=== PATIENT | female | born 1950 | race Caucasian/White ===

== ENCOUNTER 2019-03-09 13:22 | Outpatient (CLI) | payer MEDICARE, OTHER, SELFPAY ==
--- NOTE | 2019-03-09 13:36 | XRR_ITS ---
PROCEDURE INFORMATION: Exam: XR Bilateral Hips Exam date and time: 03/09/2019 1:55 PM Age: 68 years old Clinical indication: Hip pain; Bilateral; Additional info: Bilateral hip pain TECHNIQUE: Imaging protocol: XR bilateral hips Views: Bilateral hip AP neutral and frog-leg views, 4 views. COMPARISON: No relevant prior studies available. FINDINGS: Bones/joints: Severe right hip joint narrowing with cystic changes and subchondral sclerosis, mild lateral para-articular ossification. Slight lateral femoral head subluxation. Mild left lateral acetabular articular marginal hypertrophy. Soft tissues: Unremarkable. Vasculature: Calcified phleboliths are present in the lower pelvis bilaterally. 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
== END 2019-03-09 13:23 | disposition home or self-care (01) ==
LOC: RAD 13:31
PROVIDERS: Family Provider Nurse Practitioner Family; PCP Nurse Practitioner Family; Visit Provider Internal Medicine
DX: M16.0 Bilateral primary osteoarthritis of hip (principal); M25.551 Pain in right hip; M25.552 Pain in left hip
CPT/HCPCS: 73522

== ENCOUNTER 2019-12-10 06:00 | Outpatient (RCR) | payer MEDICARE, OTHER, SELFPAY | END 2019-12-12 23:59 | disposition home or self-care (01) | LOC: SPT 06:00 | PROVIDERS: PCP Nurse Practitioner Family; Referring Provider Orthopaedic Surgery; Visit Provider Orthopaedic Surgery | DX: Z47.1 Aftercare following joint replacement surgery (principal); Z96.652 Presence of left artificial knee joint | CPT/HCPCS: 97161 ==

== ENCOUNTER 2019-12-13 06:00 | Outpatient (RCR) | payer MEDICARE, OTHER, SELFPAY | END 2020-01-11 23:59 | disposition home or self-care (01) | LOC: SPT 06:00 | PROVIDERS: PCP Nurse Practitioner Family; Referring Provider Orthopaedic Surgery; Visit Provider Orthopaedic Surgery | DX: Z47.1 Aftercare following joint replacement surgery (principal); Z96.652 Presence of left artificial knee joint | CPT/HCPCS: 97110 ==

== ENCOUNTER 2020-01-12 06:00 | Outpatient (RCR) | payer MEDICARE, OTHER, SELFPAY | END 2020-02-11 23:59 | disposition home or self-care (01) | LOC: SPT 06:00 | PROVIDERS: PCP Nurse Practitioner Family; Referring Provider Orthopaedic Surgery; Visit Provider Orthopaedic Surgery | DX: Z47.1 Aftercare following joint replacement surgery (principal); Z96.652 Presence of left artificial knee joint | CPT/HCPCS: 97110 ==

== ENCOUNTER 2020-02-12 06:00 | Outpatient (RCR) | payer MEDICARE, OTHER, SELFPAY | END 2020-03-13 23:59 | disposition home or self-care (01) | LOC: SPT 06:00 | PROVIDERS: PCP Nurse Practitioner Family; Referring Provider Orthopaedic Surgery; Visit Provider Orthopaedic Surgery | DX: Z47.1 Aftercare following joint replacement surgery (principal); Z96.652 Presence of left artificial knee joint | CPT/HCPCS: 97110 ==

== ENCOUNTER → 2023-01-25 09:49 | Outpatient (BNVA) | payer MEDICARE, SELFPAY | PROVIDERS: PCP Nurse Practitioner Family; Visit Provider Internal Medicine | DX: E07.9 Disorder of thyroid, unspecified (principal); E03.9 Hypothyroidism, unspecified; R63.5 Abnormal weight gain; R06.02 Shortness of breath; Z79.890 Hormone replacement therapy; Z68.35 Body mass index [BMI] 35.0-35.9, adult | CPT/HCPCS: 99204 ==

== ENCOUNTER → 2023-03-06 15:48 | Outpatient (BNVA) | payer MEDICARE, SELFPAY | PROVIDERS: PCP Nurse Practitioner Family; Visit Provider Nurse Practitioner Family | DX: R06.00 Dyspnea, unspecified (principal) | CPT/HCPCS: 71046 ==

== ENCOUNTER → 2023-09-23 13:01 | Outpatient (BNVA) | payer MEDICARE, SELFPAY | PROVIDERS: PCP Nurse Practitioner Family; Visit Provider Thoracic Surgery (Cardiothoracic Vascular Surgery) | DX: I96 Gangrene, not elsewhere classified (principal); I87.2 Venous insufficiency (chronic) (peripheral); L97.822 Non-pressure chronic ulcer of other part of left lower leg with fat layer exposed | CPT/HCPCS: 11042; 11045; 97597; 99213 ==

== ENCOUNTER → 2023-10-02 13:32 | Outpatient (BNVA) | payer MEDICARE, SELFPAY | PROVIDERS: PCP Nurse Practitioner Family; Visit Provider Thoracic Surgery (Cardiothoracic Vascular Surgery) | DX: I96 Gangrene, not elsewhere classified (principal); I87.2 Venous insufficiency (chronic) (peripheral); L97.822 Non-pressure chronic ulcer of other part of left lower leg with fat layer exposed | CPT/HCPCS: 97597; 97598 ==

== ENCOUNTER → 2023-10-09 10:30 | Outpatient (BNVA) | payer MEDICARE, SELFPAY | PROVIDERS: PCP Nurse Practitioner Family; Visit Provider Thoracic Surgery (Cardiothoracic Vascular Surgery) | DX: I96 Gangrene, not elsewhere classified (principal); I87.2 Venous insufficiency (chronic) (peripheral); L97.822 Non-pressure chronic ulcer of other part of left lower leg with fat layer exposed | CPT/HCPCS: 97597; 97598; A6252 ==

== ENCOUNTER → 2023-10-11 11:16 | Outpatient (BNVA) | payer MEDICARE, SELFPAY | PROVIDERS: PCP Nurse Practitioner Family; Visit Provider Thoracic Surgery (Cardiothoracic Vascular Surgery) | DX: I96 Gangrene, not elsewhere classified (principal); I87.2 Venous insufficiency (chronic) (peripheral); L97.822 Non-pressure chronic ulcer of other part of left lower leg with fat layer exposed | CPT/HCPCS: 99212; A6252 ==

== ENCOUNTER → 2023-10-17 13:59 | Outpatient (BNVA) | payer MEDICARE, SELFPAY | PROVIDERS: PCP Nurse Practitioner Family; Visit Provider Thoracic Surgery (Cardiothoracic Vascular Surgery) | DX: I96 Gangrene, not elsewhere classified (principal); I87.2 Venous insufficiency (chronic) (peripheral); L97.821 Non-pressure chronic ulcer of other part of left lower leg limited to breakdown of skin | CPT/HCPCS: 97597; 97598 ==

== ENCOUNTER → 2023-10-24 10:58 | Outpatient (BNVA) | payer MEDICARE, SELFPAY | PROVIDERS: PCP Nurse Practitioner Family; Visit Provider Thoracic Surgery (Cardiothoracic Vascular Surgery) | DX: I96 Gangrene, not elsewhere classified; I87.2 Venous insufficiency (chronic) (peripheral); L97.822 Non-pressure chronic ulcer of other part of left lower leg with fat layer exposed | CPT/HCPCS: 87070; 87077; 87176; 87186; 87205; 97597; 97598 ==

== ENCOUNTER → 2023-10-31 10:35 | Outpatient (BNVA) | payer MEDICARE, SELFPAY | PROVIDERS: PCP Nurse Practitioner Family; Visit Provider Thoracic Surgery (Cardiothoracic Vascular Surgery) | DX: I96 Gangrene, not elsewhere classified (principal); I87.2 Venous insufficiency (chronic) (peripheral); L97.821 Non-pressure chronic ulcer of other part of left lower leg limited to breakdown of skin | CPT/HCPCS: 97597; 97598 ==

== ENCOUNTER → 2023-11-06 13:00 | Outpatient (BNVA) | payer MEDICARE, SELFPAY | PROVIDERS: PCP Nurse Practitioner Family; Visit Provider Thoracic Surgery (Cardiothoracic Vascular Surgery) | DX: I96 Gangrene, not elsewhere classified (principal); I87.2 Venous insufficiency (chronic) (peripheral); L97.821 Non-pressure chronic ulcer of other part of left lower leg limited to breakdown of skin | CPT/HCPCS: 97597; 97598 ==

== ENCOUNTER 2023-11-07 09:09 | Inpatient (IN) | payer MEDICARE, SELFPAY ==
--- OUTSIDE RECORDS SUMMARY | 2023-11-07 09:15 | XMS_ITS ---
Author Name Unknown Organization [facility] Address [address] [place] [address] Care Team Providers Care Founder & Ceo Name Role Phone Eddy [facility] Primary Care Provider [phone] KAM, [facility] Unavailable Unavailable Allergies Allergen (clinical drug ingredient) Drug/Non Drug Allergy documented on EMR Reaction Allergy Type Onset Date Status Flexeril blurry vision Drug Allergy Act lexi REASON FOR VISIT September Medications Medication SIG (Take, Route, Frequency, Duration) Notes Start Date End Date Status Vitamin C 500 MG 1 tablet Orally Once a day Active Albuterol Sulfate HFA 108 (90 Base) MCG/ACT 2 puffs Inhalation four times a day prn for 30 days 02/08/2023 Not-Taking Calcium Active Vitamin B6 Active Vitamin B12 Active amLODIPine Besylate 5 MG 1 tablet Orally Once a day in evening for 30 days Active Amiodarone HCl 200 MG 1 tablet Orally On ce a day for 30 day(s) 04/23/2023 Active Potassium 99 MG 1 tablet Orally Once a day Active Magnesium 200 MG 1 tablet with a meal Orally Once a day Active Iodine (Kelp) 0.15 MG 1 tablet Orally ev catherine other day Active Levothyroxine Sodium 175 MCG 1 tablet in the morning on an empty stomach Orally Once a day for 30 days Active Furosemide 40 MG 1 tablet daily x 5 days, then as needed for 2-3 pound weight gain in 24 hours Orally Once a day for 30 days 06/19/2023 Active Eliquis 5 MG 1 tablet orally twic e a day for 30 days 03/08/2023 Active Olmesartan Medoxomil 40 MG 1/2 tablet Orally Twice a day for 30 days Active Omeprazole 20 mg TAKE ONE CAPSULE BY MOUTH EVERY DAY for 90 Active Gabapentin 100 MG 1 capsule Orally 3 times a day for neuropathic pain for 30 days 09/13/2023 Active Acyclovir 800 MG 1 tablet Orally 5x a day x 7 days for 10 days 09/13/2023 Active traMADol HCl 50 MG 1 tab Orally q 4 jossue rs prn severe pain for 30 days 09/13/2023 11/12/2023 Active Doxycycline Hyclate 100 MG 1 capsule Orally Twice a day for 21 day(s) 09/26/2023 10/17/2023 Active Ibuprofen 800 mg TAKE ONE TABLET BY MOUTH THREE TIMES DAILY AFTER MEALS NEEDED FOR inflammatory pain for 90 Active Social History Tobacco Use: Social History Observation Description Date Details (start date - stop date) Never Smoker NA - NA xTobacco Use/Smoking Question Answer Notes Are you a nonsmoker Encounters Encounter Location Date Provider Diagnosis [facility] [address] [place] [address] 10/04/2023 Rosa Kam Primary hypertension I10 and Leg pain, left M79.605 Assessments Encounter Date Diagnosis (ICD Code) Assessment Notes Treat ment Notes Treatment Clinical Notes 10/04/2023 Primary hypertension (ICD-10 - I10) 10/04/2023 Leg pain, left (ICD-10 - M79.605) Plan Of Treatment Next Appt Details Provider Name:Ferdinand Meza Berto , 12/10/2023 09:30:00 AM, [address], [place], [address], Progress Notes * ERIKA MORGAN EDOB:[birth year] (72 yo F)Acc No.[id number]:10/04/2023 Patient:?ERIKA MORGAN :1950???Age:72 Y???Sex:Female Address:[address] [place] [id number] Subjective: * Chief Complaints: * ???September * Medical History:? * Surgical History:? * Hospitalization/Major Diagno stic Procedure:? * Social History:?Tobacco Use:?xTobacco Use/Smoking?Are you a?nonsmoker * Medications:?TakingIbuprofen 800 mg Tablet TAKE ONE TABLET BY MOUTH THREE TIMES DAILY AFTER MEALS NEEDED FOR inflammatory pain Doxycycline Hyclate 100 MG Capsule 1 capsule Orally Twice a day , stop date 10/17/2023traMADol HCl 50 MG Tablet 1 tab Orally q 4 hours prn severe pain , stop date 11/12/2023cyclovir 800 MG Tablet 1 tablet Orally 5x a day x 7 days Gabapentin 100 MG Capsule 1 capsule Orally 3 times a day for neuropathic pain Levothyroxine Sodium 175 MCG Capsule 1 tablet in the morning on an empty stomach Orally Once a day Omeprazole 20 mg Capsule Delayed Release TAKE ONE CAPSULE BY MOUTH EVERY DAY Olmesartan Medoxomil 40 MG Tablet 1/2 tablet Orally Twice a day Eliquis 5 MG Tablet 1 tablet orally twice a day Furosemide 40 MG Tablet 1 tablet daily x 5 days, then as needed for 2-3 pound weight gain in 24 hours Orally Once a day Iodine (Kelp) 0.15 MG Tablet 1 tablet Orally every other day Magnesium 200 MG Tablet 1 tablet with a meal Orally Once a day Potassium 99 MG Tablet 1 tablet Orally Once a day Amiodarone HCl 200 MG Tablet 1 tablet Orally Once a day amLODIPine Besylate 5 MG Tablet 1 tablet Orally Once a day in evening Vitamin C 500 MG Tablet Chewable 1 tablet Orally Once a day Vitamin B12 Vitamin B6 Calcium Taking Ibuprofen 800 mg Tablet TAKE ONE TABLET BY MOUTH THREE TIMES DAILY AFTER MEALS NEEDED FOR inflammatory pain Taking Doxycycline Hyclate 100 MG Capsule 1 capsule Orally Twice a day , stop date 10/17/2023Taking traMADol HCl 50 MG Tablet 1 tab Orally q 4 hours prn severe pain , stop date 11/12/2023Taking Acyclovir 800 MG Tablet 1 tablet Orally 5x a day x 7 days Taking Gabapentin 100 MG Capsule 1 capsule Orally 3 times a day for neuropathic pain Taking Levothyroxine Sodium 175 MCG Capsule 1 tablet in the morning on an empty stomach Orally Once a day Taking Omeprazole 20 mg Capsule Delayed Release TAKE ONE CAPSULE BY MOUTH EVERY DAY Taking Olmesartan Medoxomil 40 MG Tablet 1/2 tablet Orally Twice a day Taking Eliquis 5 MG Tablet 1 tablet orally twice a day Taking Furosemide 40 MG Tablet 1 tablet daily x 5 days, then as needed for 2-3 pound weight gain in 24 hours Orally Once a day Taking Iodine (Kelp) 0.15 MG Tablet 1 tablet Orally every other day Taking Magnesium 200 MG Tablet 1 tablet with a meal Orally Once a day Taking Potassium 99 MG Tablet 1 tablet Orally Once a day Taking Amiodarone HCl 200 MG Tablet 1 tablet Orally Once a day Taking amLODIPine Besylate 5 MG Tablet 1 tablet Orally Once a day in evening Taking Vitamin C 500 MG Tablet Chewable 1 tablet Orally Once a day Taking Vitamin B12 Taking Vitamin B6 Taking Calcium Not-TakingAlbuterol Sulfate HFA 108 (90 Base) MCG/ACT Aerosol Solution 2 puffs Inhalation four times a day prn Medication List reviewed and reconciled with the patientNot-Taking Albuterol Sulfate HFA 108 (90 Base) MCG/ACT Aerosol Solution 2 puffs Inhalation four times a day prn Medication List reviewed and reconciled with the patient * Allergies:?Flexeril: blurry vision - Side Effects Objective: * Vitals:? * Physical Examination:? Assessment: * Assessment: 1.?Primary hypertension - I1 0 (Primary)???2.?Leg pain, left - M79.605??? Plan: * Treatment: * Procedure Codes:? * true * Date:? Generated for Carl smallwood/Robby/eTransmitting on:?11/07/2023 09:15 AM CDT
--- OUTSIDE RECORDS SUMMARY | 2023-11-07 09:15 | XMS_ITS ---
Author Name Unknown Organization [facility] Address [address] [place] [address] Care Team Providers Care Poultry Grader Name Role Phone Eddy [facility] Primary Care Provider KAM, [facility] Unavailable Unavailable Allergies Allergen (clinical drug ingredient) Drug/Non Drug Allergy documented on EMR Reaction Allergy Type Onset Date Status Flexeril blurry vision Drug Allergy Act lexi REASON FOR VISIT October Medications Medication SIG (Take, Route, Frequency, Duration) Notes Start Date End Date Status Albuterol Sulfate HFA 108 (90 Base) MCG/ACT 2 puffs Inhalation four times a day prn for 30 days 02/08/2023 Not-Taking Calcium Active Vitamin B6 Active Vitamin B12 Active Vitamin C 500 MG 1 tablet Orally Once a day Active Iodine (Kelp) 0.15 MG 1 tablet Orally ev catherine other day Active amLODIPine Besylate 5 MG 1 tablet Orally Once a day in evening for 30 days Active Amiodarone HCl 200 MG 1 tablet Orally On ce a day for 30 day(s) 04/23/2023 Active Potassium 99 MG 1 tablet Orally Once a day Active Magnesium 200 MG 1 tablet with a meal Orally Once a day Active Furosemide 40 MG 1 tablet daily [...] neuropathic pain for 30 days 09/13/2023 Active traMADol HCl 50 MG 1 tab Orally q 4 jossue rs prn severe pain for 30 days 09/13/2023 11/12/2023 Active Ibuprofen 800 mg TAKE ONE TABLET BY MOUTH THREE TIMES DAILY AFTER MEALS NEEDED FOR inflammatory pain for 90 Active Levothyroxine Sodium 175 mcg TAKE ONE TABLET BY MOUTH EVERY MORNING ON an EMPTY stomach for 30 Active Acyclovir 800 MG 1 tablet Orally 5x a day x 7 days for 10 days 09/13/2023 Active Social History Tobacco Use: Social History Observation Description Date Details (start date - stop date) Never Smoker NA - NA xTobacco Use/Smoking Question Answer Notes Are you a nonsmoker Encounters Encounter Location Date Provider Diagnosis [facility] [address] [facility] [place] [address] 11/04/2023 Rosa Kam Primary hypertension I10 and Cellulitis L03.90 Assessments Encounter Date Diagnosis (ICD Code) Assessment Notes Treat ment Notes Treatment Clinical Notes 11/04/2023 Primary hypertension (ICD-10 - I10) 11/04/2023 Cellulitis (ICD-10 - L03.90) Plan Of Treatment Next Appt Details Provider Name:Jorge Alberto Camp , 12/10/2023 09:30:00 AM, [address], [place], [address], Progress Notes * ERIKA MORGAN EDOB:[birth year] (72 yo F)Acc No.[id number]:11/04/2023 Patient:?DAYSI MORGANENE Romel :1950???Age:72 Y???Sex:Female Address:[address] [place] [phone] Subjective: * Chief Complaints: * ???CCM October * Medical History:? * Surgical History:? * Hospitalization/Major Diagno stic Procedure:? * Social History:?Tobacco Use:?xTobacco Use/Smoking?Are you a?nonsmoker ???caffeine pos alcohol neg. * Medications:?TakingLevothyro xine Sodium 175 mcg Tablet TAKE ONE TABLET BY MOUTH EVERY MORNING ON an EMPTY stomach Ibuprofen 800 mg Tablet TAKE ONE TABLET BY MOUTH THREE TIMES DAILY AFTER MEALS NEEDED FOR inflammatory pain traMADol HCl 50 MG Tablet 1 tab Orally q 4 hours prn severe pain , stop date 11/12/2023cyclovir 800 MG Tablet 1 tablet Orally 5x a day x 7 days Gabapentin 100 MG Capsule 1 capsule Orally 3 times a day for neuropathic pain Omeprazole 20 mg Capsule Delayed Release TAKE [...] day Vitamin B12 Vitamin B6 Calcium Taking Levothyroxine Sodium 175 mcg Tablet TAKE ONE TABLET BY MOUTH EVERY MORNING ON an EMPTY stomach Taking Ibuprofen 800 mg Tablet TAKE ONE TABLET BY MOUTH THREE TIMES DAILY AFTER MEALS NEEDED FOR inflammatory pain Taking traMADol HCl 50 MG Tablet 1 tab Orally q 4 hours prn severe pain , stop date 11/12/2023Taking Acyclovir 800 MG Tablet 1 tablet Orally 5x a day x 7 days Taking Gabapentin 100 MG Capsule 1 capsule Orally 3 times a day for neuropathic pain Taking Omeprazole 20 mg Capsule Delayed Release [...] * Assessment: 1.?Primary hypertension - I1 0 (Primary)???2.?Cellulitis - L03.90??? Plan: * Treatment: * Procedure Codes:? * * Date:?
--- OUTSIDE RECORDS SUMMARY | 2023-11-07 09:15 | XMS_ITS ---
Author Name Unknown Organization [facility] Address [address] [place] [address] Care Team Providers Care Bridge Saw Operator Name Role Phone Germaine Kam Primary Care Provider GERMAINE KAM Unavailable Unavailable REASON FOR VISIT HTN, HLD Medications Medication SIG (Take, Route, Frequency, Duration) Notes Start Date End Date Status Calcium Active Vitamin B6 Active Vitamin B12 Active Levothyroxine Sodium 175 mcg TAKE ONE TABLET BY MOUTH EVERY MORNING ON an EMPTY stomach for 30 Active Albuterol Sulfate HFA 108 (90 Base) MCG/ACT 2 puffs Inhalation four times a day prn for 30 days 02/08/2023 Not-Taking Magnesium 200 MG 1 tablet with a meal Orally Once a day Active Vitamin C 500 MG 1 tablet Orally Once a day Active amLODIPine Besylate 5 MG 1 tablet Orally Once a day in evening for 30 days Active Amiodarone HCl 200 MG 1 tablet Orally On ce a day for 30 day(s) 04/23/2023 Active Potassium 99 MG 1 tablet Orally Once a day Active Olmesartan Medoxomil 40 MG 1/2 tablet Orally Twice a day for 30 days Active Omeprazole 20 mg TAKE ONE CAPSULE BY MOUTH EVERY DAY for 90 Active Iodine (Kelp) 0.15 MG 1 tablet Orally ev catherine other day Active Furosemide 40 MG 1 tablet daily x 5 days, then as needed for 2-3 pound weight gain in 24 hours Orally Once a day for 30 days 06/19/2023 Active Eliquis 5 MG 1 tablet orally twic e a day for 30 days 03/08/2023 Active Acyclovir 800 MG 1 tablet Orally 5x a day x 7 days for 10 days 09/13/2023 Active traMADol HCl 50 MG 1 tab Orally q 4 jossue rs prn severe pain for 30 days 09/13/2023 11/12/2023 Active Ibuprofen 800 mg TAKE ONE TABLET BY MOUTH THREE TIMES DAILY AFTER MEALS NEEDED FOR inflammatory pain for 90 Active Gabapentin 100 MG 1 capsule Orally 3 times a day for neuropathic pain for 30 days 09/13/2023 Active Encounters Encounter Location Date Provider Diagnosis [facility] [address] [place] [address] 11/04/2023 [facility] Plan Of Treatment Next Appt Details Provider Name:Ferdinand Meza Berto , 12/10/2023 09:30:00 AM, [address], [place], [address], Progress Notes * ERIKA MORGAN EDOB:[birth year] (72 yo F)Acc No.[id number]:11/04/2023 Care Plan Visit Patient:?ERIKA MORGAN Provider:?Germaine Kam BIOSOLIDS MANAGEMENT TECHNICIAN?Resource:Jonh Collins :1950???Age:72 Y???Sex:Female D ate:11/04/2023 Address:[address] [place] [id number] Subjective: * Chief Complaints: * ???1. HTN, HLD. * Medical History:? * Medications:?Taking Ibuprofe n 800 mg Tablet TAKE ONE TABLET BY MOUTH THREE TIMES DAILY AFTER MEALS NEEDED FOR inflammatory pain , Taking traMADol HCl 50 MG Tablet 1 tab Orally q 4 hours prn severe pain , stop date 11/12/2023, Taking Acyclovir 800 MG Tablet 1 tablet Orally 5x a day x 7 days , Taking Gabapentin 100 MG Capsule 1 capsule Orally 3 times a day for neuropathic pain , Taking Omeprazole 20 mg Capsule Delayed Release TAKE ONE CAPSULE BY MOUTH EVERY DAY , Taking Olmesartan Medoxomil 40 MG Tablet 1/2 tablet Orally Twice a day , Taking Eliquis 5 MG Tablet 1 tablet orally twice a day , Taking Furosemide 40 MG Tablet 1 tablet daily x 5 days, then as needed for 2-3 pound weight gain in 24 hours Orally Once a day , Taking Iodine (Kelp) 0.15 MG Tablet 1 tablet Orally every other day , Taking Magnesium 200 MG Tablet 1 tablet with a meal Orally Once a day , Taking Potassium 99 MG Tablet 1 tablet Orally Once a day , Taking Amiodarone HCl 200 MG Tablet 1 tablet Orally Once a day , Taking amLODIPine Besylate 5 MG Tablet 1 tablet Orally Once a day in evening , Taking Vitamin C 500 MG Tablet Chewable 1 tablet Orally Once a day , Taking Vitamin B12 , Taking Vitamin B6 , Taking Calcium , Taking Levothyroxine Sodium 175 mcg Tablet TAKE ONE TABLET BY MOUTH EVERY MORNING ON an EMPTY stomach , Not-Taking Albuterol Sulfate HFA 108 (90 Base) MCG/ACT Aerosol Solution 2 puffs Inhalation four times a day prn Objective: * Vitals:? Assessment: Plan: * Treatment: Care Plan: * Problems:? * Billing Information: * Visit Code:? * Procedure Codes:? Care Plan Details* Morbid ObesityGoalObjectiveI nterventionG1.Obesity- Achieve a healthy weight rangeGoal Outcome:In ProgressStart Date:11/09/2022O1.Obesity- Determine current motivation to lose weight and stage of changeI1.Free TextNotes(1) establish individual goal and plan for attaining that goalName: John Jalloh ? ? Time: 11/09/2022 02:37 PMHypertensionGoalObjectiveInterventionG1.Hypertension/Hyperlipidemia- Decrease blood pressureGoal Outcome:In ProgressStart Date:11/09/2022O1.Hypertension/Hyperlipidemia- Assess motivation and stage of changeI1.Hypertension - Patient kept a daily log of blood pressure. * Patient Focused Care Plan Family/Caregiver involved in patient's care?self Specialist involved in patie nt care?wound clinic Symptoms/conditions of great est concern to the patient?current cellulitis Psych-Social status?AAOx3 Environmental status?lives i n her home alone Functional status?indep with ADLs and IADLs Follow up plan?keep all medi lydia appts, talk with cm once per month, take medications as directed Patient provided with aj vaz/electronic copy of care plan:?Sent to portal electronically * Sign off status: Completed true * Provider:Dario Kam BIOSOLIDS MANAGEMENT TECHNICIAN Date:?11/04/19 24 Generated for Carl smallwood/Robby/Yuliana on:?11/07/2023 09:15 AM CDT
--- OUTSIDE RECORDS SUMMARY | 2023-11-07 09:16 | XMS_ITS | Patient Health Record ---
Author Name Unknown Organization [facility] Address [address] [place] [address] Care Team Providers Care Mobile Home Laborer Name Role Phone Rosa Kam Primary Care Provider [phone] ROSA KAM Unavailable Unavailable Barbaracarlos Samir Unavailable [phone] Pal Calderon Unavailable [phone] Aaron Whitaker Unavailable [phone] EmmanuelDiana Unavailable [phone] Allergies Allergen (clinical drug ingredient) Drug/Non Drug Allergy documented on EMR Reaction Allergy Type Onset Date Status Flexeril blurry vision Drug Allergy Act lexi Results Component Value Reference Range Notes RA Factor 59569, 10534 Reviewed date:02/08/2023 06:33:40 PM Interpretation: Performing Lab: Notes/Report: Diagnosis Description: Rheumatoid arthritis with rheumatoid factor 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 Uric Acid (B) 53239 Reviewed date:02/08/2023 07:00:40 PM Interpretation: Performing Lab: Notes/Report: Diagnosis Description: Idiopathic chronic gout, multiple sites, with tophus (tophi) Uric Acid 5.2 2.6-6.0 MG/DL Thyroxine (T4) 10830 Reviewed date:02/08/2023 06:34:42 PM Interpretation: Performing Lab: Notes/Report: Diagnosis Description: Hypothyroidism, unspecified ThyroxinT4 10.7 4.8-13.9 Thyroid Stimulating Hormone (TSH) 60245 Reviewed date:02/08/2023 06:38:43 PM Interpretation: Performing Lab: Notes/Report: Diagnosis Description: Hypothyroidism, unspecified TSH 5.366 .358-3.740 MlU/ML Echo Complete [id number] Reviewed date:03/12/2023 02:19:02 PM Interpretation: Performing Lab: Notes/Report: NM Lexiscan Cardiolite-03466 Reviewed date:03/19/2023 08:06:17 AM Interpretation: Performing Lab: Notes/Report: qhq=[id number]&org=iSite sbl=[id number] &org =iSite NM Lexiscan Cardiolite-[id number] Reviewed date:03/19/2023 04:05:24 PM Interpretation: Performing Lab: Notes/Report: See Below For Report NM Lexiscan Cardiolite Read See Below For Report Schedule Confirmation Reviewed date:04/30/2023 03:17:43 PM Interpretation: Performing Lab: Notes/Report: RT Cardioversion Attendance Potassium (B) 22726 Reviewed date:05/30/2023 12:34:32 PM Interpretation: Performing Lab: Notes/Report: Potassium 4.1 3.5-5.1 MMOL/L Prothrombin Time 31389 Reviewed date:05/30/2023 12:34:32 PM Interpretation: Performing Lab: Notes/Report: ProTime 12.1 9.1-11.9 SEC Normal Range: 9 .1-11.9 INR 1.16 .90-1.20 Therapaeutic Range for heart valve replacement: 2.5-3.50 Therapeutic Range: 2.0-3.0 Holter 7 day-,09917 Reviewed date:06/06/2023 04:06:38 PM Interpretation: Performing Lab: Notes/Report: Holter 7 day-,41691 Reviewed date:06/06/2023 04:06:38 PM Interpretation: Performing Lab: Notes/Report: Holter 7 day-,79738 Reviewed date:06/06/2023 04:06:38 PM Interpretation: Performing Lab: Notes/Report: Pro BNP 97543 Reviewed date:06/28/2023 08:06:06 AM Interpretation: Performing Lab: Notes/Report: Diagnosis Description: Edema, unspecified PBNP 84.3 .0-125.0 PG/ML Basic Metabolic Panel (BMP) 49033 Reviewed date:06/28/2023 08:06:06 AM Interpretation: Performing Lab: Notes/Report: Diagnosis Description: Edema, unspecified Sodium 145 136-145 MMOL/L Potassium 4.4 3.5-5.1 MMOL/L Chloride 105 98-107 MMOL/L CO2 31.1 20.0-31.0 MMOL/L Glucose Serum 88 71-110 MG/DL Testing perfor med at [facility], [address] [place] [address] [place] [address]. CLIA ID#: [id number] BUN 26 7-21 MG/DL Creat .79 .51-1.17 MG/DL Z-uuqjpa-t-benzoquino ne imine (NAPQI) is a metabolite of acetaminophen, NAPQI concentrations of apparoximately 10 mg/L correlation to toxic levels of acetaminophen demonstrates a greater than or equil to 10% change in results. NAPQI concentrations greater than this may lead to falsely depressed results for patient samples. Use of this assay is not recommended for patients undergoing treatment with phenindione, due to the potential for falsely depressed results. GFR 79.1 Calculation per formed from GFR calculator provided by the National Kid[employer] Foundation. Glomerular Filtration rate(GRF) is the best overall index of kidney function. Normal GFR varies according to age,sex, body size, and declines with age. The National Kidney Foundation recommends using the CKD-EPI Creatinine Equation(2020) to estimate GFR. Anion Gap 13 5-15 BUN/Creat Ratio 32.9 12.0-20.0 % Calcium 9.7 8.7-10.4 MG/DL Osmo Serum,Calculated 304 280-300 MOSM/KG US Venous Doppler Scan LILLY Packer -[id number] Reviewed date:08/08/2023 11:10:47 AM Interpretation: Performing Lab: Notes/Report: US Venous Doppler Scan LE Lilly -[id number] Reviewed date:08/08/2023 02:04:50 PM Interpretation: Performing Lab: Notes/Report: hcl=[id number]&org=iSite mks=[id number] &org =iSite US Venous Doppler Scan LE Le ft-[id number] Reviewed date:08/09/2023 09:17:45 AM Interpretation: Performing Lab: Notes/Report: See Below For Report US Venous Doppler Scan LE Left Read See Below For Report Culture Wound [id number] Reviewed date:09/19/2023 05:05:11 PM Interpretation: Performing Lab: Notes/Report: Culture Wound ERIKA Hogan E Culture Wound t: Culture Wound Culture Wound Accessio [id number] Culture Wound n: Culture Wound Microbiology Culture Wound PROCEDURE: Culture W ound [O1] Culture Wound SOURCE: Wound BODY SITE: Culture Wound COLLECTED DATE/TIME: 09/16/2023 13:39 CDT RECEIVED DATE/TIME: 09/16/2023 16:49 CDT Culture Wound START DATE/TIME: 09/16/2023 16:49 CDT FREE TEXT SOURCE: Culture Wound FINAL REPORT Culture Wound Final Report [] Culture Wound Verified Date/Time: 09/19/2023 08:26 CDT Culture Wound Few Enterococcus faecalis Culture Wound Few Enterococcus avium Culture Wound Few Pseudomonas aeruginosa Culture Wound and Culture Wound Few Serratia marcescens Culture Wound SUSCEPTIBILITY RESULTS Culture Wound Strfae Culture Wound Antibiotic MDIL MINT Culture Wound Ampicillin <=2 Susceptible Culture Wound Benzylpenicillin 4 Susceptible Culture Wound Ciprofloxacin 1 Susceptible Culture Wound Erythromycin 2 Intermediate Culture Wound Gentamicin High Syn- S Susceptible Culture Wound Levofloxacin 1 Susceptible Culture Wound LINEZOLID 2 Susceptible Culture Wound Streptomycin High Le tristin Syn-S Susceptible Culture Wound Tetracycline <=1 Susceptible Culture Wound Vancomycin 1 Susceptible Culture Wound Entavi Culture Wound Antibiotic MDIL MINT Culture Wound Ampicillin <=2 Susceptible Culture Wound Benzylpenicillin 1 Susceptible Culture Wound Ciprofloxacin <=0.5 Susceptible Culture Wound Erythromycin 0.5 Susceptible Culture Wound Gentamicin High Syn- S Susceptible Culture Wound Levofloxacin 0.25 Susceptible Culture Wound Streptomycin High Le tristin Syn-S Susceptible Culture Wound Tetracycline >=16 Resistant Culture Wound Vancomycin <=0.5 Susceptible Culture Wound Pseaer Culture Wound Antibiotic MDIL MINT Culture Wound Cefepime <=1 Susceptible Culture Wound Ceftazidime 2 Susceptible Culture Wound Ciprofloxacin <=0.25 Susceptible Culture Wound Levofloxacin 0.5 Susceptible Culture Wound Piperacillin/Tazobac sy 8 Susceptible Culture Wound Tobramycin <=1 Susceptible Culture Wound Sermar Culture Wound Antibiotic MDIL MINT Culture Wound Cefepime <=1 Susceptible Culture Wound Ceftazidime <=1 Susceptible Culture Wound Ceftriaxone <=1 Susceptible Culture Wound Ciprofloxacin <=0.25 Susceptible Culture Wound Gentamicin <=1 Susceptible Culture Wound Levofloxacin 0.25 Susceptible Culture Wound Tobramycin <=1 Susceptible Culture Wound \X0C\ Microbiology Culture Wound Order Comments Culture Wound O1: Culture Wound (Culture Wound [id number]) Culture Wound Diagnosis Descriptio n: Cellulitis, unspecified Thyroid Stimulating Hormone (TSH) 91122 Reviewed date:09/06/2023 03:14:00 PM Interpretation: Performing Lab: Notes/Report: TSH 8.352 .358-3.740 MlU/ML T4 [id number] Reviewed date:09/06/2023 03:14:00 PM Interpretation: Performing Lab: Notes/Report: Free T4 1.34 0.89-1.76 NG/DL Comprehensive Metabolic Pane l 66070 Reviewed date:09/06/2023 03:14:00 PM Interpretation: Performing Lab: Notes/Report: Glucose Serum 96 71-110 MG/DL Testing perfor med at [facility], [address] [place] [address] [place] [address]. CLIA ID#: [id number] BUN 21 7-21 MG/DL Creat 1.02 .51-1.17 MG/DL Use of this assay is not recommended for patients undergoing treatment with phenindione, due to the potential for falsely depressed results. K-unhynb-j-benzoquino ne imine (NAPQI) is a metabolite of acetaminophen, NAPQI concentrations of apparoximately 10 mg/L correlation to toxic levels of acetaminophen demonstrates a greater than or equil to 10% change in results. NAPQI concentrations greater than this may lead to falsely depressed results for patient samples. GFR 58.7 Calculation per formed from GFR calculator provided by the National Kid[employer] Foundation. Glomerular Filtration rate(GRF) is the best overall index of kidney function. Normal GFR varies according to age,sex, body size, and declines with age. The National Kidney Foundation recommends using the CKD-EPI Creatinine Equation(2020) to estimate GFR. BUN/Creat Ratio 20.6 12.0-20.0 % Total Protein 6.6 5.8-8.0 G/DL Albumin 4.1 3.2-4.8 G/DL Globulin 2.5 2.3-3.5 G/DL Alb/Glob 1.6 0.8-2.2 Calcium 9.0 8.7-10.4 MG/DL Sodium 140 136-145 MMOL/L Potassium 4.3 3.5-5.1 MMOL/L Chloride 106 98-107 MMOL/L CO2 30.1 20.0-31.0 MMOL/L Anion Gap 8 5-15 Alk Phos 104 46-116 Bili Total .4 .3-1.2 MG/DL Use of this ass ay is not recommended for patients undergoing treatment with eltrombopag due to the potential for falsely elevated results. AST/SGOT 21 15-37 UNIT/L ALT/SGPT 18 12-78 UNIT/L Osmo Serum,Calculated 293 280-300 MOSM/KG Basic Metabolic Panel (BMP) 77365 Reviewed date:07/10/2023 04:36:45 AM Interpretation: Performing Lab: Notes/Report: Sodium 143 136-145 MMOL/L Potassium 4.2 3.5-5.1 MMOL/L Chloride 105 98-107 MMOL/L CO2 29.6 20.0-31.0 MMOL/L Glucose Serum 88 71-110 MG/DL Testing perfor med at [address] Benja [place], [place] [address]. CLIA ID#: [id number] BUN 22 7-21 MG/DL Creat 1.25 .51-1.17 MG/DL Use of this assay is not recommended for patients undergoing treatment with phenindione, due to the potential for falsely depressed results. Z-xabsnk-x-benzoquino ne imine (NAPQI) is a metabolite of acetaminophen, NAPQI concentrations of apparoximately 10 mg/L correlation to toxic levels of acetaminophen demonstrates a greater than or equil to 10% change in results. NAPQI concentrations greater than this may lead to falsely depressed results for patient samples. GFR 45.8 Calculation per formed from GFR calculator provided by the National Kid[employer] Foundation. Glomerular Filtration rate(GRF) is the best overall index of kidney function. Normal GFR varies according to age,sex, body size, and declines with age. The National Kidney Foundation recommends using the CKD-EPI Creatinine Equation(2020) to estimate GFR. Anion Gap 13 5-15 BUN/Creat Ratio 17.6 12.0-20.0 % Calcium 8.9 8.7-10.4 MG/DL Osmo Serum,Calculated 299 280-300 MOSM/KG Thyroxine (T4) 37018 Reviewed date:06/27/2023 11:09:51 AM Interpretation: Performing Lab: Notes/Report: ThyroxinT4 3.9 4.8-13.9 Thyroid Stimulating Hormone (TSH) 72831 Reviewed date:07/29/2023 04:38:58 PM Interpretation: Performing Lab: Notes/Report: TSH 112.076 .358-3.740 MlU/ML Comprehensive Metabolic Pane l 81696 Reviewed date:05/01/2023 04:44:40 PM Interpretation: Performing Lab: Notes/Report: Diagnosis Description: Other persistent atrial fibrillation Glucose Serum 96 71-110 MG/DL Testing perfor med at [facility], [address] [place] [address] [place] [address]. CLIA ID#: [id number] BUN 22 7-21 MG/DL Creat .78 .51-1.17 MG/DL H-qvfobw-v-benzoquino ne imine (NAPQI) is a metabolite of acetaminophen, NAPQI concentrations of apparoximately 10 mg/L correlation to toxic levels of acetaminophen demonstrates a greater than or equil to 10% change in results. NAPQI concentrations greater than this may lead to falsely depressed results for patient samples. Use of this assay is not recommended for patients undergoing treatment with phenindione, due to the potential for falsely depressed results. GFR 80.9 Calculation per formed from GFR calculator provided by the National Kid[employer] Foundation. Glomerular Filtration rate(GRF) is the best overall index of kidney function. Normal GFR varies according to age,sex, body size, and declines with age. The National Kidney Foundation recommends using the CKD-EPI Creatinine Equation(2020) to estimate GFR. BUN/Creat Ratio 28.2 12.0-20.0 % Total Protein 6.7 5.8-8.0 G/DL Albumin 4.3 3.2-4.8 G/DL Globulin 2.4 2.3-3.5 G/DL Alb/Glob 1.8 0.8-2.2 Calcium 9.4 8.7-10.4 MG/DL Sodium 143 136-145 MMOL/L Potassium 4.5 3.5-5.1 MMOL/L Chloride 108 98-107 MMOL/L CO2 27.6 20.0-31.0 MMOL/L Anion Gap 12 5-15 Alk Phos 109 46-116 Bili Total .5 .3-1.2 MG/DL Use of this ass ay is not recommended for patients undergoing treatment with eltrombopag due to the potential for falsely elevated results. AST/SGOT 34 15-37 UNIT/L ALT/SGPT 29 12-78 UNIT/L Osmo Serum,Calculated 299 280-300 MOSM/KG Thyroid Stimulating Hormone (TSH) 36995 Reviewed date:05/01/2023 04:44:40 PM Interpretation: Performing Lab: Notes/Report: Diagnosis Description: Other persistent atrial fibrillation TSH .068 .358-3.740 MlU/ML Echo Complete [id number] Reviewed date:04/30/2023 03:18:17 PM Interpretation: Performing Lab: Notes/Report: Cardiopulmonary Services Name: ERIKA MORGAN Study Date: 04/22/2023 : 1950 Patient Location: [facility] Age: 72 yrs Gender: Female HR: 88 Reason For Study: sosa Interpretation Summary The left ventricle is normal in size. There is mild concentric left ventricular hypertrophy. Left ventricular systolic function is normal. Left Ventricular Function is estimated to be 55-60%. The right ventricle is borderline dilated. The left atrium is mild to moderately dilated. The right atrium is mildly dilated. There is mild mitral regurgitation. There is moderate aortic valve sclerosis without evidence of stenosis. There is moderate tricuspid regurgitation. Right ventricular systolic pressure is elevated at 40-50mmHg. Moderate pulmonic valvular regurgitation. Recommendations Continue present medication. Will continue to follow regularly. Left Ventricle The left ventricle is normal in size. There is mild concentric left ventricular hypertrophy. Left ventricular systolic function is normal. Left Ventricular Function is estimated to be 55-60%. Right Ventricle The right ventricle is borderline dilated. Atria The left atrium is mild to moderately dilated. The right atrium is mildly dilated. Pericardium/Pleural There is no pericardial effusion. There is no pleural effusion. Mitral Valve There is mild mitral regurgitation. Aortic Valve There is moderate aortic valve sclerosis without evidence of stenosis. Tricuspid Valve There is moderate tricuspid regurgitation. Right ventricular systolic pressure is elevated at 40-50mmHg. Pulmonic Valve Moderate pulmonic valvular regurgitation. MMode/2D Measurements & Calculations RVDd: 2.7 cm LVIDd: 4.3 cm FS: 30.5 % IVSd: 1.3 cm LVIDs: 3.0 cm EDV(Teich): 83.3 ml ESV(Teich): 34.8 ml EF(Teich): 58.2 % Ao root diam: 3.0 cm asc Aorta Diam: 3.6 cm LVOT diam: 2.0 cm Ao root area: 7.0 cm2 LVOT area: 3.1 cm2 ACS: 1.7 cm LA dimension: 4.3 cm Time Measurements Aortic HR: 86.8 BPM MM HR: 109.1 BPM Doppler Measurements & Calculations MV E max tristin: 114.3 cm/sec MV dec slope: 888.0 cm/sec2 Ao V2 max: 147.1 cm/sec MV A max tristin: 43.2 cm/sec MV dec time: 0.13 sec Ao max P.7 mmHg MV E/A: 2.6 Ao V2 mean: 99.9 cm/sec Ao mean P.5 mmHg Ao V2 VTI: 22.8 cm TERESSA(I,D): 2.1 cm2 TERESSA(V,D): 1.9 cm2 LV V1 max P.3 mmHg CO(LVOT): 4.2 l/min PA V2 max: 71.0 cm/sec LV V1 mean P.8 mmHg SV(LVOT): 48.7 ml PA max P.0 mmHg LV V1 max: 90.2 cm/sec LV V1 mean: 58.8 cm/sec LV V1 VTI: 15.7 cm PI end-d tristin: 236.4 cm/sec TR max tristin: 293.8 cm/sec RAP systole: 10.0 mmHg TR max P.5 mmHg RVSP(TR): 44.5 mmHg Ordering Physician: Pal Calderon Referring Physician: Pal Calderon Performed By: Adwoa Correa, Echo Cardiopulmonary Services Name: ERIKA MORGAN Study Date: 04/22/2023 : 1950 Patient Location: [facility] Age: 72 yrs Gender: Female HR: 88 Reason For Study: sosa Interpretation Summary The left ventricle i s normal in size. There is mild concen tric left ventricular hypertrophy. Left ventricular systolic function is normal. Left Ventricular Function is estimated to be 55-60%. The right ventricle is borderline dilated. The left atrium is m ild to moderately dilated. The right atrium is mildly dilated. There is mild mitral regurgitation. There is moderate ao rtic valve sclerosis without evidence of stenosis. There is moderate tricuspid regurgitation. Right ventricular systolic pressure is elevated at 40-50mmHg. Moderate pulmonic valvular regurgitation. Recommendations Continue present medication. Will continue to follow regularly. Left Ventricle The left ventricle i s normal in size. There is mild concentric left ventricular hypertrophy. Left ventricular systolic function is normal. Left Ventricular Function is estimate d to be 55-60%. Right Ventricle The right ventricle is borderline dilated. Atria The left atrium is m ild to moderately dilated. The right atrium is mildly dilated. Pericardium/Pleural There is no pericard ial effusion. There is no pleural effusion. Mitral Valve There is mild mitral regurgitation. Aortic Valve There is moderate ao rtic valve sclerosis without evidence of stenosis. Tricuspid Valve There is moderate tricuspid regurgitation. Right ventricular systolic pressure is elevated at 40-50mmHg. Pulmonic Valve Moderate pulmonic valvular regurgitation. MMode/2D Measurement s & Calculations RVDd: 2.7 cm LVIDd: 4.3 cm FS: 30.5 % IVSd: 1.3 cm LVIDs: 3.0 cm EDV(Teich): 83.3 ml ESV(Teich): 34.8 ml EF(Teich): 58.2 % ____ Ao root diam: 3.0 cm asc Aorta Diam: 3.6 cm LVOT diam: 2.0 cm Ao root area: 7.0 cm 2 LVOT area: 3.1 cm2 ACS: 1.7 cm LA dimension: 4.3 cm Time Measurements Aortic HR: 86.8 BPM MM HR: 109.1 BPM Doppler Measurements & Calculations MV E max tristin: 114.3 cm/sec MV dec slope: 888.0 cm/sec2 Ao V2 max: 147.1 cm/sec MV A max tristin: 43.2 cm/sec MV dec time: 0.13 sec Ao max P.7 mmHg MV E/A: 2.6 Ao V2 me an: 99.9 cm/sec Ao mean P.5 mmHg Ao V2 VTI: 22.8 cm TERESSA(I,D): 2.1 cm2 TERESSA(V,D): 1.9 cm2 ____ LV V1 max P.3 mm Hg CO(LVOT): 4.2 l/min PA V2 max: 71.0 cm/sec LV V1 mean P.8 m mHg SV(LVOT): 48.7 ml PA max P.0 mmHg LV V1 max: 90.2 cm/sec LV V1 mean: 58.8 cm/sec LV V1 VTI: 15.7 cm ____ PI end-d tristin: 236.4 cm/sec TR max tristin: 293.8 cm/sec RAP systole: 10.0 mmHg TR max P.5 mmHg RVSP(TR): 44.5 mmHg ____ Electronically mally d by:Pal Calderon MD on 04/22/2023 05:00 PM Ordering Physician: Pal Calderon Referring Physician: Pal Calderon Performed By: Adwoa Correa, Echo Echo Complete [id number] Reviewed date:04/30/2023 03:18:17 PM Interpretation: Performing Lab: Notes/Report: mid=[id number]&org=iSite jwi=[id number] &org =iSite Pro BNP [id number] Reviewed date:02/08/2023 06:36:03 PM Interpretation: Performing Lab: Notes/Report: Diagnosis Description: Essential (primary) hypertension PBNP 308.4 .0-125.0 PG/ML CBC w\ Auto Diff [id number] Reviewed date:02/08/2023 06:39:13 PM Interpretation: Performing Lab: Notes/Report: Diagnosis Description: Essential (primary) hypertension WBC 5.3 4.5-11.0 X10'3 RBC 4.80 4.00-5.20 X10'6 Hgb 14.2 12.0-16.0 G/DL Hct 45.9 36.0-46.0 % MCV 95.6 80.0-100.0 FL MCH 29.6 27.0-31.0 PG MCHC 30.9 31.0-37.0 G/DL Platelet 208 150-400 X10'3 RDW-SD 46.5 35.0-49.0 FL RDW-CV 13.2 12.2-15.6 % MPV 11.9 9.2-12.0 FL Neutro Auto% 58.9 42.0-75.0 % Lymph Auto% 25.7 20.0-51.0 % [place] Auto% 9.4 1.7-9.3 % Eos Auto% 5.1 .0-6.0 % Baso Auto% 0.7 0.0-1.0 % Imm Gran% .2 .0-.4 % Neutro Abs 3.15 .80-7.70 Absolute Neutrophil Count 3150 Lymph Abs 1.37 .10-4.10 [place] Abs .50 .20-1.00 Eos Abs .27 .00-.40 Baso Abs .04 .00-.10 Imm Gran Abs .01 .00-.10 NRBC# .00 .00-.20 X10'3 NRBC% .00 .00-.20 /100 intact WBC's Comprehensive Metabolic Pane l 75002 Reviewed date:02/08/2023 06:35:05 PM Interpretation: Performing Lab: Notes/Report: Diagnosis Description: Essential (primary) hypertension Glucose Serum 78 71-110 MG/DL Testing perfor med at [address] [place] [address]. CLIA ID#: [id number] BUN 19 7-21 MG/DL Creat .60 .51-1.17 MG/DL Use of this assay is not recommended for patients undergoing treatment with phenindione, due to the potential for falsely depressed results. O-mfiqeh-q-benzoquino ne imine (NAPQI) is a metabolite of acetaminophen, NAPQI concentrations of apparoximately 10 mg/L correlation to toxic levels of acetaminophen demonstrates a greater than or equil to 10% change in results. NAPQI concentrations greater than this may lead to falsely depressed results for patient samples. GFR 95.8 Calculation per formed from GFR calculator provided by the National Kidney Foundation. Glomerular Filtration rate(GRF) is the best overall index of kidney function. Normal GFR varies according to age,sex, body size, and declines with age. The National Kidney Foundation recommends using the CKD-EPI Creatinine Equation(2009) to estimate GFR. BUN/Creat Ratio 31.7 12.0-20.0 % Total Protein 7.0 5.8-8.0 G/DL Albumin 4.5 3.2-4.8 G/DL Globulin 2.5 2.3-3.5 G/DL Alb/Glob 1.8 0.8-2.2 Calcium 9.4 8.7-10.4 MG/DL Sodium 146 136-145 MMOL/L Potassium 4.0 3.5-5.1 MMOL/L Chloride 107 98-107 MMOL/L CO2 29.0 20.0-31.0 MMOL/L Anion Gap 14 5-15 Alk Phos 106 46-116 Bili Total .8 .3-1.2 MG/DL Use of this ass ay is not recommended for patients undergoing treatment with eltrombopag due to the potential for falsely elevated results. AST/SGOT 30 15-37 UNIT/L ALT/SGPT 28 12-78 UNIT/L Osmo Serum,Calculated 303 280-300 MOSM/KG Thyroxine (T4) 20880 Reviewed date:09/06/2023 03:14:00 PM Interpretation: Performing Lab: Notes/Report: ThyroxinT4 10.4 4.8-13.9 Basic Metabolic Panel (BMP) [id number] Reviewed date:07/26/2023 04:22:32 AM Interpretation: Performing Lab: Notes/Report: Diagnosis Description: Essential (primary) hypertension Sodium 143 136-145 MMOL/L Potassium 4.8 3.5-5.1 MMOL/L Chloride 107 98-107 MMOL/L CO2 27.2 20.0-31.0 MMOL/L Glucose Serum 90 71-110 MG/DL Testing perfor med at [facility], [address] [place] [address] [place] [address]. CLIA ID#: [id number] BUN 27 7-21 MG/DL Creat .93 .51-1.17 MG/DL Use of this assay is not recommended for patients undergoing treatment with phenindione, due to the potential for falsely depressed results. T-sevajh-o-benzoquino ne imine (NAPQI) is a metabolite of acetaminophen, NAPQI concentrations of apparoximately 10 mg/L correlation to toxic levels of acetaminophen demonstrates a greater than or equil to 10% change in results. NAPQI concentrations greater than this may lead to falsely depressed results for patient samples. GFR 65.1 Calculation per formed from GFR calculator provided by the National Kid[employer]. Glomerular Filtration rate(GRF) is the best overall index of kidney function. Normal GFR varies according to age,sex, body size, and declines with age. The National Kidney Foundation recommends using the CKD-EPI Creatinine Equation(2020) to estimate GFR. 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 Julianne Referring Provider First Name Rosa Referring Provider Last Name Kam Referring Provider Speciality Nurse Ezequiel webster Referred Organization [facility] Referred Provider Pal Calderon Referred Address [address] [place] [address],[place],[phone], Referral Priority Routine Reason dyspnea elevated b fnp hypertension Diagnosis 1 Primary hypertension (I10) Diagnosis 2 Dyspnea (R06.00) Referral Organization [facility] Referring Provider First Name Rosa Referring Provider Last Name Kam Referring Provider Speciality Nurse Ezequiel webster Referred Provider PAL CALDERON Referred Provider Specialty Cardiology General Notes Sofía Piper 03/15 11:36:29 AM >See referral notes Referral Priority Routine Reason lesions leg Diagnosis 1 Edema of left lower extremity (R60.0) Diagnosis 2 Erythema of lower ex tremity (L53.9) Diagnosis 3 Herpes zoster (B02.9 ) Diagnosis 4 Cellulitis (L03.90) Referral Organization [facility] Referring Provider First Name Rosa Referring Provider Last Name Kam Referring Provider Speciality Nurse Ezequiel webster Referred Provider [facility] [place] Referred Provider Specialty Wound Care General Notes Sofía Piper 09/11 04:11:17 PM >Requested referral notes from [facility] Sofía Piper 09/26/2023 08:47:06 AM >See referral notes. Referral Priority Routine Referral Appointment Date 09/23/2023 Medications Medication SIG (Take, Route, Frequency, Duration) Notes Start Date End Date Status Furosemide 40 MG 1 tablet daily x 5 days, then as needed for 2-3 pound weight gain in 24 hours Orally Once a day for 30 days 06/19/2023 Active Eliquis 5 MG 1 tablet orally twic e a day for 30 days 03/08/2023 Active Albuterol Sulfate HFA 108 (90 Base) MCG/ACT 2 puffs Inhalation four times a day prn for 30 days 02/08/2023 Not-Taking traMADol HCl 50 MG 1 tab Orally q 4 josuse rs prn severe pain for 30 days 09/13/2023 11/12/2023 Active amLODIPine Besylate 5 MG 1 tablet Orally Once a day in evening for 30 days Active Ibuprofen 800 mg TAKE ONE TABLET BY MOUTH THREE TIMES DAILY AFTER MEALS NEEDED FOR inflammatory pain for 90 Active Amiodarone HCl 200 MG 1 tablet Orally On ce a day for 30 day(s) 04/23/2023 Active Levothyroxine Sodium 175 mcg TAKE ONE TABLET BY MOUTH EVERY MORNING ON an EMPTY stomach for 30 Active Potassium 99 MG 1 tablet Orally Once a day Active Magnesium 200 MG 1 tablet with a meal Orally Once a day Active Olmesartan Medoxomil 40 MG 1/2 tablet Orally Twice a day for 30 days Active Calcium Active Omeprazole 20 mg TAKE ONE CAPSULE BY MOUTH EVERY DAY for 90 Active Vitamin B6 Active Gabapentin 100 MG 1 capsule Orally 3 times a day for neuropathic pain for 30 days 09/13/2023 Active Vitamin B12 Active Acyclovir 800 MG 1 tablet Orally 5x a day x 7 days for 10 days 09/13/2023 Active Vitamin C 500 MG 1 tablet Orally Once a day Active Iodine (Kelp) 0.15 MG 1 tablet Orally ev catherine other day Active Social History Tobacco Use: Social History Observation Description Date Details (start date - stop date) Never Smoker NA - NA xTobacco Use/Smoking Question Answer Notes Are you a nonsmoker Alcohol Screen (Audit-C) Question Answer Notes Did you have a drink containing alcohol in the p ast year? No Points 0 Interpretation Negative PHQ-9 Question Answer Notes Little interest or pleasure in doing things Not at all Feeling down, depressed, or hopeless Not at all Trouble falling or staying asleep, or sleeping t oo much Not at all Feeling tired or having little energy Not at all Poor appetite or overeating Not at all Feeling bad about yourself, or that you are a failure, or have let yourself or your family down Not at all Trouble concentrating on thi ngs, such as reading the newspaper or watching television Not at all Moving or speaking so slowly that other people could have noticed. Or the opposite ? being so fidgety or restless that you have been moving around a lot more than usual Not at all Thoughts that you would be b jeanmarie off , or of hurting yourself in some way Not at all Total Score 0 Problems Problem Type SNOMED Code ICD Code Onset Dates Problem Status W/U Status Risk Notes Problem Tricuspid valve disorder, non-rheumatic (252283682) Nonrheumatic tricuspid (valve) insufficiency (I36.1) Active confirmed Problem 582115345 Paroxysmal atria l fibrillation (I48.0) Active confirmed Problem Sick sinus syndrome (26864584) Sick sinus syndrome (I49.5) Active confirmed Problem [id number] Unspecified acquired deformity of hand, right hand (M21.941) Active confirmed Problem 909222976 Unspecified acquired deformity of hand, left hand (M21.942) Active confirmed Problem Mitral valve disorder (15295161) Nonrheumatic mitral (valve) insufficiency (I34.0) Active confirmed Problem 966847075 Gastroesophageal reflux disease without esophagitis (K21.9) Active confirmed Problem Persistent atrial fibrillation (068807439) Persistent atrial fibrillation (I48.19) Active confirmed Problem Cellulitis (044263572) Cellulitis (L03.90) Active confirmed Problem Long-term current use of anticoagulant (365600530) Anticoagulant long-term use (Z79.01) Active confirmed Problem 781843438 Leg pain, left (M79.605) Active confirmed Problem Kyphosis (551810243) Kyphosis (M40.209) Active confirmed Problem 38224553 Leukopenia, unspecified type (D72.819) Active confirmed Problem 642738624 Cellulitis of le ft lower extremity (L03.116) Active confirmed Problem 558061168 Acquired hypothyroidism (E03.9) Active confirmed Problem 246789978 FPC curren t use of therapeutic drug (Z79.899) Active confirmed Problem 365544313 Rheumatoid arthritis involving multiple sites with positive rheumatoid factor (M05.79) Active confirmed Problem 127348650 Infected tick bite, initial encounter (W57.XXXA) Active confirmed Problem Sinus node dysfunction (44165539) SSS (sick sinus syndrome) (I49.5) Active confirmed Problem Abnormal gait (67002270) Decreased mobility (R26.89) Active confirmed Problem 605408247 Encounter for annual wellness exam in Medicare patient (Z00.00) Active confirmed Problem 053264278 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) Active confirmed Problem 59054325 Primary hypertension (I10) Active confirmed Vital Signs Heart Rate 70 /min 09/16/2023 Temperature 97.7 degrees Fahrenheit 09/16/2023 Respiratory Rate 20 /min 09/16/2023 Height-cm 157.48 cm 09/16/2023 Oximetry 96 % 09/16/2023 Blood pressure diastolic 59 mm Hg 09/16/2023 Weight-kg 91.17 kg 09/16/2023 Height 62 in 09/16/2023 Blood pressure systolic 126 mm Hg 09/16/2023 Weight 201 lbs 09/16/2023 BMI 36.76 kg/m2 09/16/2023 Procedures Procedure Date Ordered Date Performed Result Body Sit e Electrical Cardioversion 04/22/2023 04/30/2023 N/A PFT with FRC: (NO TGV) 05/13/2023 05/13/2023 N/A Encounters Encounter Location Date Provider Diagnosis [facility] [address] [place] [address] 11/04/2023 [facility] Primary hypertension I10 and Cellulitis L03.90 [facility] [address] [place] [address] 11/09/2022 [facility] Primary hypertension I10 and Morbid obesity E66.01 [facility] [address] [place] [address] 11/30/2022 [facility] Primary hypertension I10 and Acquired hypothyroidism E03.9 [facility] [address] [place] [address] 12/19/2022 [facility] Primary hypertension I10 and Acquired hypothyroidism E03.9 [facility] [address] [place] [address] 01/17/2023 [facility] Primary hypertension I10 and Acquired hypothyroidism E03.9 [place] [address] [place] [address] 02/19/2023 [facility] [address] [place] [address] 02/22/2023 [facility] Primary hypertension I10 and Acquired hypothyroidism E03.9 [facility] [address] [place] [address] 02/28/2023 [facility] [address] [place] [address] 03/20/2023 [facility] [address] [place] [address] 04/02/2023 [facility] Primary hypertension I10 and Acquired hypothyroidism E03.9 [facility] [address] [place] [address] 04/16/2023 [facility] [address] [place] [address] 04/18/2023 [facility] [address] [place] [address] 04/23/2023 [facility] [address] [place] [address] 04/23/2023 [facility] Persistent atrial fibrillation I48.19 [facility] [address] [place] [address] 04/26/2023 Diana Emmanuel [facility] [address] [facility] [address] [place] [address] 04/26/2023 [facility] [address] [place] [address] 04/29/2023 [facility] [address] [place] [address] 05/01/2023 [facility] [address] [place] [address] 05/03/2023 [facility] [address] [place] [address] [place] [address] 05/03/2023 Samir Mishra [facility] [address] [place] [address] 05/07/2023 [facility] Primary hypertension I10 and Persistent atrial fibrillation I48.19 [facility] [address] [place] [address] 05/17/2023 [facility] [address] [place] [address] 05/27/2023 Diana Benitez [facility] [address] [place] [address] 06/03/2023 Pal [facility] Sick sinus syndrome I49.5 and Bradycardia R00.1 [facility] [address] [place] [address] 06/10/2023 [facility] Primary hypertension I10 and Acquired hypothyroidism E03.9 [facility] [address] [place] [address] 06/18/2023 [facility] [address] [place] [address] 06/18/2023 [facility] Primary hypertension I10 ; Decreased mobility R26.89 and Acquired hypothyroidism E03.9 [facility] [address] [place] [address] 06/18/2023 Pal Calderon Swelling R60.9 [facility] [address] [place] [address] 06/20/2023 Pal Calderon [place] [address] [place] [address] 06/25/2023 [facility] Acquired hypothyroidism E03.9 [facility] [address] [place] [address] 06/28/2023 Pal Calderon [facility] [address] [place] [address] 07/02/2023 Diana Benitez Primary hypertension I10 [facility] [address] [place] [address] 07/09/2023 Diana Benitez [facility] [address] [place] [address] 07/09/2023 Pal Calderon Primary hypertension I10 [facility] [address] [place] [address] 07/10/2023 Pal Calderon [facility] [address] [place] [address] 07/29/2023 [facility] Primary hypertension I10 and Acquired hypothyroidism E03.9 [facility] [address] [place] [address] 07/30/2023 Diana Benitez [facility] [address] [place] [address] 08/26/2023 [facility] [address] [place] [address] 08/27/2023 [facility] Erythema of lower extremity L53.9 [facility] [address] [place] [address] 08/28/2023 [facility] Primary hypertension I10 and Acquired hypothyroidism E03.9 [facility] [address] [facility] 4 [place] [address] 09/05/2023 [facility] [address] [place] [address], [place] [address] 09/09/2023 [facility] [address] [facility] [address] [place] [address] 09/26/2023 [facility] [address] [facility] [address] 10/04/2023 [facility] Primary hypertension I10 and Leg pain, left M79.605 [facility] [address] [facility] 4 [place] [address] 09/16/2023 [facility] Edema of left lower extremity R60.0 ; Erythema of lower extremity L53.9 ; Leg pain, left M79.605 ; Cellulitis L03.90 and Herpes zoster B02.9 [facility] [address] [place] [address], [place] [address] 03/08/2023 [facility] Primary hypertension I10 ; SOSA (dyspnea on exertion) R06.09 ; Persistent atrial fibrillation I48.19 ; Abnormal ECG R94.31 ; Nonrheumatic mitral (valve) insufficiency I34.0 ; Nonrheumatic tricuspid (valve) insufficiency I36.1 ; Heart palpitations R00.2 and Chest pressure R07.89 [facility] [address] [place] [address], [place] [address] 04/22/2023 Diana Benitez SOB (shortness of breath) R06.02 ; Persistent atrial fibrillation I48.19 and Primary hypertension I10 [facility] [address] [place] [address], [place] [address] 08/08/2023 [place] Paroxysmal atrial fibrillation I48.0 ; Sick sinus syndrome I49.5 ; Primary hypertension I10 ; Erythema of lower extremity L53.9 ; Leg pain, left M79.605 ; Edema of left lower extremity R60.0 ; Anticoagulant long-term use Z79.01 and On amiodarone therapy Z79.899 [facility] [address] [address] 09/13/2023 [facility] Herpes zoster B02.9 ; Cellulitis L03.90 ; Leg pain M79.606 and Acquired hypothyroidism E03.9 [facility] [address] [address] 03/12/2023 [facility] Rheumatoid arthritis involving multiple sites with positive rheumatoid factor M05.79 ; Joint pain M25.50 and Acquired hypothyroidism E03.9 [facility] [address] [address] 04/29/2023 [facility] Rheumatoid arthritis involving multiple sites with positive rheumatoid factor M05.79 ; Kyphosis M40.209 ; Rib pain R07.81 ; Decreased mobility R26.89 ; Fall W19.XXXA ; Acquired hypothyroidism E03.9 and Primary hypertension I10 [facility] [address] [address] 02/08/2023 [facility] Rheumatoid arthritis involving multiple sites with positive rheumatoid factor M05.79 ; Dyspnea R06.00 ; 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 ; Primary hypertension I10 and Acquired hypothyroidism E03.9 [facility] [address] [place] [address], [place] [address] 06/27/2023 Diana [place] Paroxysmal atrial fibrillation I48.0 ; Encounter for follow-up examination after completed treatment for conditions other than malignant neoplasm Z09 ; Sick sinus syndrome I49.5 ; Primary hypertension I10 ; Edema of left lower extremity R60.0 ; On amiodarone therapy Z79.899 and Anticoagulant long-term use Z79.01 [facility] [address] [address] 07/09/2023 [facility] Primary hypertension I10 [facility] [address] [place] [address] 07/25/2023 [facility] Primary hypertension I10 [facility] [address] [place] [address] 09/05/2023 Diana Benitez Acquired hypothyroidism E03.9 [facility] [address] [place] [address] [place] [address], [place] [address] 05/13/2023 Samir Mishra SOB (shortness of breath) R06.02 [facility] [address] [place] [address], [place] [address] 04/22/2023 [facility] [address] [place] [address], [place] [address] 06/05/2023 [facility] Sick sinus syndrome I49.5 and Bradycardia R00.1 [facility] [address] [place] [address], [place] [address] 05/30/2023 [facility] [address] [place] [address], [place] [address] 03/18/2023 [facility] [address] [place] [address], [place] [address] 05/30/2023 Diana Emmanuel Persistent atrial fibrillation I48.19 [facility] [address] [place] [address], [place] [address] 08/08/2023 Diana Benitez [facility] [address] [address] 11/09/2022 [facility] [address] [place] [address] 11/04/2023 [facility] [address] [place] [address], [place] [address] 06/20/2023 [facility] Sick sinus syndrome I49.5 and Paroxysmal A-fib I48.0 Assessments Encounter Date Diagnosis (ICD Code) Assessment Notes Treatment Notes Treatment Clinical Notes 11/09/2022 Primary hypertension (ICD-10 - I10) 11/30/2022 Primary hypertension (ICD-10 - I10) 12/19/2022 Primary hypertension (ICD-10 - I10) 01/17/2023 Primary hypertension (ICD-10 - I10) 02/08/2023 Rheumatoid arthritis involving multiple sites with positive rheumatoid factor (ICD-10 - M05.79) ra factor 02/08/2023 Dyspnea (ICD-10 - R06.00) albuteral hfa chest pa and lat dr calderon 02/22/2023 Primary hypertension (ICD-10 - I10) 03/08/2023 SOSA (dyspnea on exertion) (ICD-10 - R06.09) 03/08/2023 Primary hypertension (ICD-10 - I10) 04/22/2023 SOB (shortness of breath) (ICD-10 - R06.02) 03/12/2023 Joint pain (ICD-10 - M25.50) tramadol 03/12/2023 Rheumatoid arthritis involving multiple sites with positive rheumatoid factor (ICD-10 - M05.79) depomedrol/decadron im toradol 60 mg im 04/02/2023 Primary hypertension (ICD-10 - I10) 04/23/2023 Persistent atrial fibrillation (ICD-10 - I48.19) 05/30/2023 Persistent atrial fibrillation (ICD-10 - I48.19) 04/29/2023 Kyphosis (ICD-10 - M40.209) 04/29/2023 Rheumatoid arthritis involving multiple sites with positive rheumatoid factor (ICD-10 - M05.79) depomedrol/decadron IM 06/27/2023 Paroxysmal atrial fibrillation (ICD-10 - I48.0) Patient is currently maintaining sinus rhythm today. Will continue with amiodarone. Potential side effects of amiodarone reviewed these include but are not limited to effects to the eyes, lungs, thyroid, and liver. Baseline pulmonary function studies were normal repeat thyroid evaluations are pending, previous CMP evaluations were within normal limits. Had beenFindings of patient's Holter study needed at length at this point in time patient would like to continue with medical therapies she does not wish to see electrophysiology at this time. Will follow back up with her in 6 weeks 06/27/2023 Encounter for follow-up examination after completed treatment for conditions other than malignant neoplasm (ICD-10 - Z09) 05/13/2023 SOB (shortness of breath) (ICD-10 - R06.02) 05/07/2023 Primary hypertension (ICD-10 - I10) 06/03/2023 Sick sinus syndrome (ICD-10 - I49.5) 06/05/2023 Sick sinus syndrome (ICD-10 - I49.5) Holter device was applied today. Patient was instructed on number of days to wear device. Patient was instructed that there device is water resistant. They can wear the device in the shower as long as the device itself does not become submerged in water. There are extra patches in the kit provided dressing changes were reviewed today if needed. The importance of shipping their device back was stressed. Patient will need to replace the device into the box and take this to the nearest UPS dropbox. We will contact them with results once the report is received. 06/05/2023 Bradycardia (ICD-10 - R00.1) 06/10/2023 Primary hypertension (ICD-10 - I10) 06/18/2023 Primary hypertension (ICD-10 - I10) 06/18/2023 Swelling (ICD-10 - R60.9) 06/20/2023 Sick sinus syndrome (ICD-10 - I49.5) [place] LPN 06/20/2023 05:09:34 PM CDT > Left message for patient to contact clinic. 06/20/2023 Paroxysmal A-fib (ICD-10 - I48.0) 06/25/2023 Acquired hypothyroidism (ICD-10 - E03.9) 08/08/2023 Paroxysmal atrial fibrillation (ICD-10 - I48.0) Patient is currently maintaining sinus rhythm today. Will continue with amiodarone. Potential side effects of amiodarone reviewed these include but are not limited to effects to the eyes, lungs, thyroid, and liver. PFT had shown mild restrictive limitation and mildly reduced diffusion, TSH had been elevated patient has a great deal of confusion regarding her thyroid replacement she has a history of thyroidectomy. CMP evaluations have been within normal limits. Had beenFindings of patient's Holter study needed at length at this point in time patient would like to continue with medical therapies she does not wish to see electrophysiology at this time. 08/08/2023 Sick sinus syndrome (ICD-10 - I49.5) Patient is currently asymptomatic. Worsening symptoms associated with bradycardia were reviewed if symptoms worsen that we may need to to consider pacemaker implantation 07/02/2023 Primary hypertension (ICD-10 - I10) 07/09/2023 Primary hypertension (ICD-10 - I10) 07/09/2023 Primary hypertension (ICD-10 - I10) 07/25/2023 Primary hypertension (ICD-10 - I10) 07/29/2023 Primary hypertension (ICD-10 - I10) 09/13/2023 Cellulitis (ICD-10 - L03.90) rocephin im; levoquin 09/13/2023 Herpes zoster (ICD-10 - B02.9) acyclovir; depomedrol/decadron im 08/27/2023 Erythema of lower extremity (ICD-10 - L53.9) 08/28/2023 Primary hypertension (ICD-10 - I10) 09/05/2023 Acquired hypothyroidism (ICD-10 - E03.9) 09/16/2023 Edema of left lower extremity (ICD-10 - R60.0) 09/16/2023 Erythema of lower extremity (ICD-10 - L53.9) 10/04/2023 Primary hypertension (ICD-10 - I10) 11/04/2023 Primary hypertension (ICD-10 - I10) 11/04/2023 Cellulitis (ICD-10 - L03.90) 08/08/2023 Primary hypertension (ICD-10 - I10) 10/04/2023 Leg pain, left (ICD-10 - M79.605) 09/16/2023 Leg pain, left (ICD-10 - M79.605) ibuprofen; gabapentin; tramadol 08/28/2023 Acquired hypothyroidism (ICD-10 - E03.9) 09/13/2023 Leg pain (ICD-10 - M79.606) tramadol; gabapentin 07/29/2023 Acquired hypothyroidism (ICD-10 - E03.9) 06/18/2023 Decreased mobility (ICD-10 - R26.89) 06/10/2023 Acquired hypothyroidism (ICD-10 - E03.9) 06/03/2023 Bradycardia (ICD-10 - R00.1) 05/07/2023 Persistent atrial fibrillation (ICD-10 - I48.19) 06/27/2023 Sick sinus syndrome (ICD-10 - I49.5) Patient is currently asymptomatic. Worsening symptoms associated with bradycardia were reviewed if symptoms worsen that we may need to to consider pacemaker implantation 04/29/2023 Rib pain (ICD-10 - R07.81) toradol 60 mg im 04/02/2023 Acquired hypothyroidism (ICD-10 - E03.9) 03/12/2023 Acquired hypothyroidism (ICD-10 - E03.9) levothyroxine 04/22/2023 Persistent atrial fibrillation (ICD-10 - I48.19) 03/08/2023 Persistent atrial fibrillation (ICD-10 - I48.19) 02/22/2023 Acquired hypothyroidism (ICD-10 - E03.9) 02/08/2023 Idiopathic chronic gout of multiple sites with tophus (ICD-10 - M1A.09X1) uric acid 01/17/2023 Acquired hypothyroidism (ICD-10 - E03.9) 12/19/2022 Acquired hypothyroidism (ICD-10 - E03.9) 11/30/2022 Acquired hypothyroidism (ICD-10 - E03.9) 11/09/2022 Morbid obesity (ICD-10 - E66.01) 02/08/2023 Primary hypertension (ICD-10 - I10) continue benicar continue metoprolol add amlodipine cbc cmp lipids 04/22/2023 Primary hypertension (ICD-10 - I10) 04/29/2023 Decreased mobility (ICD-10 - R26.89) 03/08/2023 Abnormal ECG (ICD-10 - R94.31) 06/27/2023 Primary hypertension (ICD-10 - I10) Patient brings a log of blood pressures that show persistent elevation. Will go ahead and start patient on spironolactone I am hoping this will help with some of her mild lower extremity edema as well. Low-sodium diet and daily weight monitoring were encouraged. 06/18/2023 Acquired hypothyroidism (ICD-10 - E03.9) 08/08/2023 Erythema of lower extremity (ICD-10 - L53.9) Venous doppler was negative--given redness and warmth concern for cellulitis--starting antibiotic; was able to reach patient by phone and states understanding of antibiotic instructions 09/13/2023 Acquired hypothyroidism (ICD-10 - E03.9) levothyroxine 09/16/2023 Cellulitis (ICD-10 - L03.90) wound care; levoquin; 08/08/2023 Leg pain, left (ICD-10 - M79.605) 09/16/2023 Herpes zoster (ICD-10 - B02.9) acyclovir 06/27/2023 Edema of left lower extremity (ICD-10 - R60.0) Patient has been compliant with her Eliquis. Low-sodium diet compression and elevation were encouraged. Patient can take furosemide as needed for 2 to 3 pound weight gain in 24 hoursPatient was encouraged to obtain compression stockings 04/29/2023 Fall (ICD-10 - W19.XXXA) 03/08/2023 Nonrheumatic mitral (valve) insufficiency (ICD-10 - I34.0) 02/08/2023 Acquired hypothyroidism (ICD-10 - E03.9) tsh t4 conitnue meds 03/08/2023 Nonrheumatic tricuspid (valve) insufficiency (ICD-10 - I36.1) 04/29/2023 Acquired hypothyroidism (ICD-10 - E03.9) 06/27/2023 On amiodarone therapy (ICD-10 - Z79.899) 08/08/2023 Edema of left lower extremity (ICD-10 - R60.0) Patient states that she has been taking her Eliquis appropriately. Her left lower extremity has some redness and warmth it is more swollen compared to the right. Will go ahead and check a venous Doppler study. Patient was encouraged to follow-up with primary care and elevate extremity. Worsening symptoms to report reviewed 08/08/2023 Anticoagulant long-term use (ICD-10 - Z79.01) 06/27/2023 Anticoagulant long-term use (ICD-10 - Z79.01) 04/29/2023 Primary hypertension (ICD-10 - I10) 03/08/2023 Heart palpitations (ICD-10 - R00.2) 03/08/2023 Chest pressure (ICD-10 - R07.89) 08/08/2023 On amiodarone therapy (ICD-10 - Z79.899) Send May PFT to PCP Patient reports that her breathing seems to be at her normal baseline. She denies any worsening symptoms. Primary care is following her thyroid. - encouraged patient to take levothyroxine daily as per PCP 02/08/2023 Other Questions asked and answered; discharged to home. Venipuncture: Performed by: Levar VILLELA Attempts: x1 Location: LAC Needle gauge: 21G Patient tolerated well. 03/08/2023 Other Medical Decision making process: She is at least persistent atrial fibrillation if not perhaps chronic. But she is little tachycardic on the change metoprolol from nighttime to morning to get better rate control switch her Benicar to 20 morning 20 at night and keep her amlodipine at nighttime as well2. We will get an echocardiogram to assess her cardiac function she does have some mild valve insufficiency but does not sound to be too pathologic3. Will get additional cardiac testing for ischemic cause.Her for follow-up with her thyroid with her primary care provider but also we will look at putting her on anticoagulants if it is warfarin ask Ms. Kam to follow-up on that with INR goal 2.0-3.0. In the meantime we will look for the other factor Xa inhibitors first if it is affordable Return to clinic then in 6 weeks to go through results or sooner if the results are abnormal. I am very concerned about the shortness of breath issues and concern about ischemic heart disease and a course with atrial fibrillation we will try to get her back to normal rhythm. She did have a chest x-ray performed but I do not have those results at this time and were pending on getting those. 03/12/2023 Other Questions asked and answered; discharged to home. 04/22/2023 Other I would like to review case further with Dr. Calderon. Given findings of elevated right ventricular pressures and dilated right ventricle and concerned that we may have more pulmonary factors at play. Amiodarone really would not be a great choice. Again I would like to review case further with Dr. Calderon before setting up ECV or considering antiarrhythmics. Will go ahead and set patient up with pulmonary function studies for further evaluation given her shortness of breath and findings of elevated right ventricular pressures and dilated right ventricle. 04/23/2023:Case was reviewed with Dr. Calderon. He is recommended starting amiodarone and planning for electrical cardioversion in 4 weeks. Potential side effects of amiodarone reviewed these include but not limited to effects to the eyes, lungs, thyroid, and liver. Will check a TSH and CMP at time of ECV.Indications and risk of electrical cardioversion had been reviewed patient wishes to proceed. 04/29/2023 Other Questions asked and answered; discharged to home. 07/09/2023 Other Venipuncture: Performed by: Levar VILLELA Attempts: x1 Location: LAC Needle gauge: 21G Patient tolerated well. 07/25/2023 Other Venipuncture: Performed by: Levar VILLELA Attempts: x1 Location: LAC Needle gauge: 22g Patient tolerated well. 09/05/2023 Other Venipuncture performed. Left arm. One attempt. Pt tolerated well, bleeding controlled with light dressing.Cindy Dawson [facility] RE[facility] 09/13/2023 Other Questions asked and answered; discharged to home. 09/16/2023 Other Questions asked and answered; discharged to home. Plan Of Treatment Pending Test Test Name Order Date Basic Metabolic Panel (BMP) 19840 2023 Pro BNP [id number] 06/18/2023 Electrocardiogram 12 Lead Tracing-10391 04/22/2023 Chest AP/Lateral 02/08/2023 Electrocardiogram (EKG) - 61471 03/08/19 24 Electrocardiogram (EKG) - 43977 05/30/19 24 Electrocardiogram (EKG) - 78005 06/27/19 24 Electrocardiogram (EKG) - 81002 04/22/19 24 PFT with DLCO 04/22/2023 Next Appt Details Provider Name:Pal Calderon , 12/10/2023 09:30:00 AM, [address] [place] [address], [phone], Insurance Providers Payer Name Payer Address Payer Phone Subscriber Number Group Number Insured Name Patient Relationship to Insured Coverage Start Date Coverage End Date [facility] Medicare Advantage - PPO IN NETWORK [address] [address] [place] [phone] [id number] ERIKA MORGAN Self - patient is the insured 4 Medications Administered Medication Instructions Date of Administration Dosage Notes DEPO-Medrol 09/14/2021 40 mg ndc 85565-678 3-1 pt tolerated well/instructed to wait 20 min DEPO-Medrol 03/12/2023 40 mg ndc 65110-665 3-01 pt tolerated well/instructed to wait 20 min DEPO-Medrol 04/29/2023 40 mg ndc 93108-403 3-01 pt tolerated well/instructed to wait 20 min DEPO-Medrol 09/13/2023 40 mg [facility] [place] [address]51-120 3-01 pt tolerated well/instructed to wait 20 min dexAMETHasone 09/14/2021 4 mg [facility] [place] [address]995-1 39-30 pt tolerated well/instructed to wait 20 min dexAMETHasone 03/12/2023 4 mg [facility] [place] [address]77-9 423-00 pt tolerated well/instructed to wait 20 min dexAMETHasone 04/29/2023 4 mg [address]- 00 pt tolerated well/instructed to wait 20 min dexAMETHasone 09/13/2023 4 mg [facility] [place] [address]44-5 423-00 pt tolerated well/instructedto wait 20 min Ketorolac Tromethamine 09/14/2021 60 mg [facility] [address]75-837-89 pt tolerated well/instructed to wait 20 min Ketorolac Tromethamine 03/12/2023 60 mg [facility] [address]-36 pt tolerated well/instructed to wait 20 min Ketorolac Tromethamine 04/29/2023 60 mg [facility] [address]-17 pt tolerated well/instructed to wait 20 min Rocephin 09/14/2021 1 g [facility] [place] [address]28-662- 25 pt tolerated well/instructed to wait 20 min Rocephin 09/13/2023 1 g [facility] [place] [address] -11 pt tolerated well/instructed to wait 20 min Medical (General) History Medical History History ICD Code High Blood Pressure Hypothyroidism Arthritis Has had covid vaccine Surgical History Surgery Date(Month/Year) eye surgery 2018 right hip replacement 02/2019 left knee replacement 10/2019 ECV 05/30/23 Hospitalization History Reason Date(Month/Year) Chest Xray done at [facility] see surgical hx ECV - IMPRESSION: Initial ly successful elective electrocardioversion on medical management. 05/30/23
[2023-11-07 09:35] VITALS: BMI 36.1
[2023-11-07 09:41] VITALS: BP 155/77; PULSE 55; RESP 18; TEMP 36.6; O2SAT 94
--- NOTE | 2023-11-07 10:28 | P.HP_ITS ---
Documented by User: ROLANDO Baidr 11/07/23 12:05 Providers/Chief Complaint 2 Admitting Physician: Jameson Bomwan MD Primary Care Provider: Rosa Kam APN Chief Complaint: Cellulitis History of Present Illness Vidhya Malik is a 72 year old female with PMH of hypothyroidism, venous insufficiency, HTN, Afib, GERD, OA, and history of gout is being admitted for cellulitis and management of Left lower leg ulcers. Patient states these ulcers started in late July and had possible shingles along the area in August. The ulcers have progressed over the past few months with copious drainage and sharp diffuse pain in the left leg that improves with Ibuprofen and pregabalin. Patient denies fevers, chest pain, SOB, headache. Patient has been seen in the wound clinic since early September for these ulcers. Dr. Maharaj requested the patient be admitted due to her worsening erythema and edema to her lower leg with generalized malaise. Review of Systems 2 Const: Reports: chills Skin/Breast: Reports: sores (Left lower leg, anterior and posterior ulcers) Neuro: Reports: numbness in extremities (with tingling sensation) Medications/Allergies Home Medications Medication Instructions Recorded Confirmed Last Taken Type levothyroxine 175 mcg capsule 175 mcg PO ONCE 02/17/19 11/07/23 11/07/23 06:00 History 175 lisinopril 20 mg tablet 20 mg PO BID 02/17/19 11/07/23 11/05/23 History metoprolol tartrate 25 mg tablet 25 mg PO BID 02/17/19 11/07/23 11/06/23 History omeprazole 20 mg capsule,delayed 20 mg PO BID 02/17/19 11/07/23 11/07/23 History release 0600 oxybutynin chloride 5 mg tablet 5 mg PO BID 02/17/19 11/07/23 11/06/23 History pregabalin 150 mg capsule (Lyrica) 150 mg PO BID #60 caps 03/02/19 11/07/23 Unknown Rx linezolid 600 mg tablet 600 mg PO BID #20 tabs 10/31/23 11/07/23 11/06/23 Rx Allergies Allergy/AdvReac Type Severity Reaction Status Date / Time levofloxacin [From Levaquin] Allergy Mild ALGY-Redness Verified 10/24/23 12:56 of Skin tramadol Allergy unknown Verified 01/25/23 08:09 PFSH Acute 2 PFSH: Medical History Hypertension Hypothyroid Neuropathy Tricuspid insufficiency History of gout GERD (gastroesophageal reflux disease) Venous insufficiency Afib Osteoarthritis Surgical History History of eye surgery History of thyroid surgery History of hip replacement History of knee replacement Family History Father Cancer Mother Heart disease Stroke Social History Smoking and tobacco/nicotine status: never used tobacco/nicotine Alcohol intake: never Vitals/I&O/Wt Last Vital Signs Temp 97.8 F 11/07/23 09:41 Pulse 55 L 11/07/23 09:41 Resp 18 11/07/23 09:41 BP 155/77 11/07/23 09:41 Pulse Ox 94 11/07/23 09:41 O2 Del Method Room Air, Nasal Cannula 11/07/23 09:41 Physical Exam 2 Eye: OTHER: Blind in left eye Neck/C-Spine: OTHER: Supple Resp: OTHER: Normal breath sounds, clear to auscultation, normal chest wall expansion Cardio: OTHER: Normal rate and rhythm without murmurs, gallops, or rubs GI: OTHER: Soft, nondistended, nontender with normal bowel sounds Extremity: OTHER: Bilateral lower extremity edema. Left lower leg with diffuse erythema, anterior and posterior punctate ulcers measuring 2-3 cms in diameter with sanguineous drainage and odor Data 11/07/23 10:40 11/07/23 10:40 A&P Assessment and plan (1) Cellulitis: Patient has erythema and edema in left leg with anterior and posterior ulcers with fluid drainage and odor Wound care- Dressing change 3x a day Start on Vanc and Zosyn, pharmacy to dose for renal function, BUN and CR elevated No fluids at this time Tylenol 650mg PRN for pain Monitor I&Os Blood and urine cultures ordered MRSA swab ordered (2) Afib: Patient is on Eliquis, but has not taken any for the past few days Restart Eliquis 5mg BID PO Continue home metoprolol, 25 mg BID PO Ordered EKG for baseline (3) Neuropathy: Continue on home pregabalin, 150mg BID PO to manage pain (4) Hypothyroid: Continue home levothyroxine, 175mg QD PO (5) Hypertension: Continue patient on home lisinopril dosage, 20mg BID PO (6) GERD (gastroesophageal reflux disease): Start patient on Protonix 40mg BID PO Plan Cardiac diet due to history of Afib Continue oxybutynin 5mg BID for urinary incontinence Full code Coding Level of Care Code 10524 Diagnoses Cellulitis L03.90 Afib I48.91 Neuropathy G62.9 Hypothyroid E03.9 Hypertension I10 GERD (gastroesophageal reflux disease) K21.9 Time Spent (min) 54 Documented by User: Jameson Bowman MD 11/07/23 12:07 Providers/Chief Complaint 2 Chief Complaint: Cellulitis Medications/Allergies Home Medications Medication Instructions Recorded Confirmed Last Taken Type levothyroxine 175 mcg capsule 175 mcg PO ONCE 02/17/19 11/07/23 11/07/23 06:00 History 175 lisinopril 20 mg tablet 20 mg PO BID 02/17/19 11/07/23 11/05/23 History metoprolol tartrate 25 mg tablet 25 mg PO BID 02/17/19 11/07/23 11/06/23 History omeprazole 20 mg capsule,delayed 20 mg PO BID 02/17/19 11/07/23 11/07/23 History release 0600 oxybutynin chloride 5 mg tablet 5 mg PO BID 02/17/19 11/07/23 11/06/23 History pregabalin 150 mg capsule (Lyrica) 150 mg PO BID #60 caps 03/02/19 11/07/23 Unknown Rx linezolid 600 mg tablet 600 mg PO BID #20 tabs 10/31/23 11/07/23 11/06/23 Rx Allergies Allergy/AdvReac Type Severity Reaction Status Date / Time levofloxacin [From Levaquin] Allergy Mild ALGY-Redness Verified 10/24/23 12:56 of Skin tramadol Allergy unknown Verified 01/25/23 08:09 PFSH Acute 2 PFSH: Medical History Hypertension Hypothyroid Neuropathy Tricuspid insufficiency History of gout GERD (gastroesophageal reflux disease) Venous insufficiency Afib Osteoarthritis Surgical History History of eye surgery History of thyroid surgery History of hip replacement History of knee replacement Family History Father Cancer Mother Heart disease Stroke Social History Smoking and tobacco/nicotine status: never used tobacco/nicotine Alcohol intake: never Data 11/07/23 10:40 11/07/23 10:40 A&P Assessment and plan (1) Cellulitis: Patient has erythema and edema in left leg with anterior and posterior ulcers with fluid drainage and odor Wound care- Dressing change 3x a day Start on Vanc and Zosyn, pharmacy to dose for renal function, BUN and CR elevated No fluids at this time Tylenol 650mg PRN for pain Monitor I&Os Blood and urine cultures ordered MRSA swab ordered Elevate leg is much as possible Secondary to edema check BNP She is already on Eliquis so DVT unlikely (2) Afib: (3) Neuropathy: (4) Hypothyroid: (5) Hypertension: (6) GERD (gastroesophageal reflux disease): Attestations 2 Medical Necessity Statement*: Will need greater than 2 midnight stay for evaluation and treatment of cellulitis, failing outpatient treatment Diagnoses Cellulitis L03.90 Afib I48.91 Neuropathy G62.9 Hypothyroid E03.9 Hypertension I10 GERD (gastroesophageal reflux disease) K21.9 Time Spent (min) 54
[2023-11-07 11:01] LABS: Basophils # 0.1 10^3/uL (0.0-0.1); Basophils % 0.8 %; Eosinophils # 0.3 10^3/uL (0.0-0.8); Eosinophils % 4.5 %; Hematocrit 36.6 % (36-47); Lymphocytes # 1.1 10^3/uL (0.8-4.8); Lymphocytes % 17.7 %; Mean Corpuscular Hemoglobin 30.5 pg (27-33); Mean Corpuscular Volume 95.3 fl (85-98); Mean Platelet Volume 9.2 fL (7.4-10.4); Monocytes # 0.4 10^3/uL (0.2-0.9); Monocytes % 6.1 %; Neutrophils # 4.43 10^3/uL (1.8-7.7); Neutrophils % 70.6 %; Nucleated Red Blood Cells % 0 %; Platelet Count 319 10^3/cmm (157-399); Red Blood Count 3.84 10^6/uL (3.85-5.65); Red Cell Distribution Width 13.5 % (12.1-15.1); White Blood Count 6.27 10^3/uL (3.29-11.43)
[2023-11-07 11:24] LABS: Alanine Aminotransferase 23 U/L (0-33); Albumin Level 3.9 g/dL (3.5-5.2); Alkaline Phosphatase 110 U/L (35-105); Anion Gap 17.9 (5-19); Aspartate Amino Transferase 27 U/L (0-32); Blood Urea Nitrogen 33 mg/dL (8-23); Calcium 8.7 mg/dL (8.5-10.5); Carbon Dioxide 21 mmol/L (22-29); Chloride 109 mmol/L (98-107); Creatinine Clr Calc Pharmacy 48.7829; Globulin 3.6 g/dL (1.3-4.6); Glucose 99 mg/dL (65-115); Osmolality Calculated 303 mOsm/kg (285-295); Potassium 4.9 mmol/L (3.5-5.1); Sodium 143 mmol/L (136-145); Thyroid Stimulating Hormone 2.81 uIU/mL (0.27-4.20); Total Bilirubin 0.3 mg/dL (0.15-1.2); Total Protein 7.5 g/dL (6.6-8.7)
[2023-11-07 11:48] VITALS: BP 167/75; PULSE 68; RESP 18; TEMP 36.4; O2SAT 95
[2023-11-07] MEDS: acetaminophen 325 mg Tablet 650 MG PO (11:49)
--- NOTE | 2023-11-07 12:00 | PHA.VACGOAL ---
Vancomycin Goal - Goal Vancomycin Goal:: 15-20 mg/L Vancomycin Indication:: Other - Therapy Day of therpy:: Day []of [] . Actual body weight (kg): 197 lb 6.4 oz - Data Labs: WBC 6.27 10^3/uL (3.29-11.43) 11/07/23 10:40 RBC 3.84 10^6/uL (3.85-5.65) L 11/07/23 10:40 Hgb 11.70 g/dL (11.27-16.99) 11/07/23 10:40 Hct 36.6 % (36-47) 11/07/23 10:40 MCV 95.3 fl (85-98) 11/07/23 10:40 MCH 30.5 pg (27-33) 11/07/23 10:40 MCHC 32.0 g/dL (30-55) 11/07/23 10:40 RDW 13.5 % (12.1-15.1) 11/07/23 10:40 Sodium 143 mmol/L (136-145) 11/07/23 10:40 Potassium 4.9 mmol/L (3.5-5.1) 11/07/23 10:40 Chloride 109 mmol/L (98-107) H 11/07/23 10:40 Carbon Dioxide 21 mmol/L (22-29) L 11/07/23 10:40 Anion Gap 17.9 (5-19) 11/07/23 10:40 BUN 33 mg/dL (8-23) H 11/07/23 10:40 Creatinine 1.1 mg/dL (0.5-0.9) H 11/07/23 10:40 GFR Calculation Not Reportable 11/07/23 10:40 Regimen:: 1250 MG Q18H
[2023-11-07] MEDS: vancomycin 1,250 MG/250 ML PIGGYBACK 166.67 MG IV (13:12)
--- NOTE | 2023-11-07 13:15 | ECG_ITS ---
[facility] [place] Test Date: 2023-11-07 Pat Name: Vidhya Malik Department: Room: 271 Gender: Female Film Mounter: : 1950 Requested By: Jameson Cooper Order Number: [id number] Jose Eduardo MD: Rosales Min M.D. Measurements Intervals [place] Rate: 68 P: 105 AL: 215 QRS: 7 QRSD: 93 T: 14 QT: 407 QTc: 434 Interpretive Statements SINUS RHYTHM WITH FIRST DEGREE AV BLOCK No previous ECG available for comparison Electronically Signed On 11-07-2023 16:36:38 CDT by Rosales Min M.D. [email or web address]
[2023-11-07] MEDS: HYDROcodone-acetaminophen 5-325 mg Tablet 1 TAB PO ×3 (13:33→22:30)
[2023-11-07 14:08] LABS: NT Pro B Type Natriuretic Pept 954 pg/mL (0-125)
--- NOTE | 2023-11-07 14:14 | USCV_ITS ---
Vidhya Malik Age: 72 Gender: F : 1950 Exam Date: 11/07/2023 18:31 Ordering Phys: Jameson Bowman MD Technologist: HOWARD [place] [facility] [place]ication: elevated BNP, HTN, Afib, GERD, OA, gout, cellulitis. BP: 170 / 72 HR: 58 Rhythm: Atrial fibrillation Technical Quality: Adequate MEASUREMENTS (Male / Female) Normal Values 2D ECHO LV Diastolic Diameter PLAX 4.8 cm 4.2 - 5.9 / 3.9 - 5.3 cm IVS Diastolic Thickness 1.1 cm 0.6 - 1.0 / 0.6 - 0.9 cm IVS Systolic Thickness 1.6 cm LVPW Diastolic Thickness 1.0 cm 0.6 - 1.0 / 0.6 - 0.9 cm LVPW Systolic Thickness 1.7 cm LVOT Diameter 2.0 cm LV Ejection Fraction 2D Teich 71.1 % LV Ejection Fraction MOD 4C 67.6 % LV Ejection Fraction MOD 2C 52.7 % LV Ejection Fraction 2C AL 53.1 % LA Diameter 4.3 cm Aorta at Sinotubular Diameter 2.8 cm IVC Diameter 1.2 cm M-MODE LA Ao Ratio MM 1.6 AV Cusp Separation MM 1.7 cm DOPPLER AV Peak Velocity 149.0 cm/s LVOT Peak Velocity 72.0 cm/s AV Area Cont Eq vti 1.7 cm squared AV Area Cont Eq pk 1.6 cm squared MV Peak Velocity 123.0 cm/s MV Area PHT 2.9 cm squared Mitral E to A Ratio 0.0 TR Peak Velocity 254.0 cm/s TR Peak Gradient 25.8 mmHg TV Peak E Velocity 60.0 cm/s Right Atrial Pressure 10.0 mmHg Pulmonary Artery Systolic Pressu 35.8 mmHg PV Peak Velocity 89.0 cm/s FINDINGS Left Ventricle Normal left ventricular size and systolic function, EF 60%. Mild left ventricular hypertrophy. No regional wall motion abnormalities. Grade III/IV diastolic dysfunction (restrictive filling pattern), severely elevated filling pressures. Right Ventricle The right ventricle is normal in size and function. Right Atrium The right atrium is normal in size. Left Atrium Mildly increased left atrial size. Mitral Valve Thickened mitral valve. Mild mitral annular calcification. Aortic Valve Structurally normal aortic valve without significant sclerosis or stenosis. There is no aortic regurgitation. Tricuspid Valve Trace to mild tricuspid valve regurgitation. Pulmonic Valve Trace of pulmonary valve regurgitation. Estimated pulmonary artery peak systolic pressure 36 mmHg Pericardium No pericardial effusion. Aorta Normal aortic annulus size. IVC The inferior vena cava appears normal. CONCLUSIONS Normal left ventricular size and systolic function, EF 60%. Mild left ventricular hypertrophy. No regional wall motion abnormalities. Grade III/IV diastolic dysfunction (restrictive filling pattern), severely elevated filling pressures. Mildly increased left atrial size. Thickened mitral valve. Mild mitral annular calcification. Trace to mild tricuspid valve regurgitation. Estimated pulmonary artery peak systolic pressure 36 mmHg Trace of pulmonary valve regurgitation. There is no pericardial effusion. There are no intracardiac masses. No similar previous studies are available for comparison Dr Nathalie Orozco MD FACC (Electronically Signed) Final Date: 07 November 2023 22:47 S
[2023-11-07 14:41] LABS: MRSA PCR OZH (swab) NOT DETECTED (Not Detecte)
[2023-11-07 15:38] VITALS: BP 170/72; PULSE 63; RESP 17; TEMP 36.3; O2SAT 94
[2023-11-07 16:08] LABS: Bilirubin Urine Negative (Negative); Blood Urine Negative (Negative); Glucose Urine UA Negative (Normal); Ketones Urine Negative (Negative); Leukocyte Esterase Urine 2+ (Negative); Nitrate Urine Negative (Negative); Protein Urine Negative (Negative); Specific Gravity, Urine 1.016 (1.005-1.030); Urine Appearance Clear (CLEAR); Urine Color Yellow (Yellow); Urobilinogen Urine 0.2 mg/dL (Negative); pH Urine 5.5 (5-7)
[2023-11-07] MEDS: FUROsemide 10 mg/mL SDV 4mL 40 MG IVP (16:17)
[2023-11-07 16:18] LABS: Add Urine Microscopic? YES; Bacteria Urine None Seen /hpf; Hyaline Casts Urine 6.61 /lpf; RBC Urine 0-2 /hpf (0-2); Squamous Epithelial Cell Urine 0-5 /hpf (0-5)
[2023-11-07] MEDS: piperacillin-tazobactam 3.375 GM in sodium chloride 0.9% (plus) 50 ML IV ×2 (16:18→22:29)
[2023-11-07 16:25] LABS: Add Urine Culture? No
[2023-11-07] MEDS: lisinopril 20 mg Tablet PO (18:10)
[2023-11-07] MEDS: pantoprazole DR 40 mg Tablet PO (18:11)
[2023-11-07] MEDS: metoprolol tartrate 25 mg Tablet PO (18:11)
[2023-11-07] MEDS: oxybutynin 5 mg Tablet PO (18:11)
--- NOTE | 2023-11-07 19:30 | PC.NURSE ---
pts dressing change done at approx 1810
[2023-11-07 20:00] VITALS: BP 138/75; PULSE 56; RESP 17; TEMP 36.4; O2SAT 95
[2023-11-07] MEDS: apixaban 5 mg Tablet PO (21:04)
[2023-11-07 23:35] VITALS: BP 150/80; PULSE 57; RESP 16; TEMP 36.9; O2SAT 94
[2023-11-08] MEDS: HYDROcodone-acetaminophen 5-325 mg Tablet 1 TAB PO ×3 (02:24→22:18)
[2023-11-08 04:00] VITALS: BP 147/68; PULSE 60; RESP 17; TEMP 37.1; O2SAT 92
[2023-11-08 05:19] LABS: Basophils # 0.1 10^3/uL (0.0-0.1); Basophils % 1.1 %; Eosinophils # 0.2 10^3/uL (0.0-0.8); Eosinophils % 2.5 %; Lymphocytes # 0.9 10^3/uL (0.8-4.8); Lymphocytes % 11.6 %; Mean Corpuscular HGB Conc 31.4 g/dL (30-55); Mean Corpuscular Hemoglobin 30.4 pg (27-33); Mean Corpuscular Volume 96.9 fl (85-98); Mean Platelet Volume 9.5 fL (7.4-10.4); Monocytes # 0.5 10^3/uL (0.2-0.9); Monocytes % 5.7 %; Neutrophils # 6.34 10^3/uL (1.8-7.7); Neutrophils % 78.9 %; Nucleated Red Blood Cells % 0 %; Platelet Count 317 10^3/cmm (157-399); Red Blood Count 3.82 10^6/uL (3.85-5.65); Red Cell Distribution Width 13.7 % (12.1-15.1); White Blood Count 8.04 10^3/uL (3.29-11.43)
[2023-11-08 05:37] LABS: Blood Urea Nitrogen 36 mg/dL (8-23); Calcium 8.2 mg/dL (8.5-10.5); Carbon Dioxide 19 mmol/L (22-29); Chloride 109 mmol/L (98-107); Creatinine Clr Calc Pharmacy 38.1158; Glucose 111 mg/dL (65-115); Osmolality Calculated 299 mOsm/kg (285-295); Sodium 140 mmol/L (136-145)
[2023-11-08] MEDS: levothyroxine 175 mcg Tablet PO (06:24)
[2023-11-08 08:00] VITALS: BP 106/60; PULSE 53; RESP 16; TEMP 37.1; O2SAT 96
[2023-11-08] MEDS: metoprolol tartrate 25 mg Tablet PO (09:12)
[2023-11-08] MEDS: pantoprazole DR 40 mg Tablet PO ×2 (09:12→16:46)
[2023-11-08] MEDS: amlodipine 5 mg Tablet PO (09:12)
[2023-11-08] MEDS: oxybutynin 5 mg Tablet PO ×2 (09:12→16:46)
[2023-11-08] MEDS: gabapentin 100 mg Capsule PO (09:12)
[2023-11-08] MEDS: amiodarone 200 mg Tablet PO (09:12)
[2023-11-08] MEDS: apixaban 5 mg Tablet PO ×2 (09:15→20:37)
--- NOTE | 2023-11-08 09:36 | P.PN_ITS ---
Documented by User: ROLANDO Baird STD 11/08/23 10:40 Subjective 2 Subjective: Patient is doing well. She has been experiencing pain in her left leg and had gotten up around 4 this morning to sit in a chair which relieved the pain. A recliner was been requested to be placed in her room to allow her leg to be elevated. Patient denied chest pain, SOB, Abdominal pain, headache, fever, and chills. Vitals/I&O/Wt Last Vital Signs Temp 98.7 F 11/08/23 08:00 Pulse 53 L 11/08/23 08:00 Resp 16 11/08/23 08:00 BP 106/60 11/08/23 08:00 Pulse Ox 96 11/08/23 08:00 O2 Del Method Room Air 11/08/23 04:00 11/07/23 11/08/23 11/08/23 22:59 06:59 14:59 Intake Total 300 / 300 50 / 350 240 / 240 Output Total 1200 / 1200 Balance -900 / -900 50 / -850 240 / 240 Weight last 48 hrs Weight 195 lb 6 oz Weight 197 lb 6.4 oz Physical Exam 2 HENMT: OTHER: Supple Resp: OTHER: Bilateral breath sounds, clear to auscultation, normal chest wall expansion Cardio: OTHER: Normal rate and rhythm without murmurs, gallops, or rubs GI: OTHER: No abdominal pain on palpation, soft, nondistended with normal bowel sounds. Extremity: OTHER: Bilateral edema, no cyanosis, left leg wrapped with cotton sleave Data 11/08/23 05:05 11/08/23 05:05 Micro: Microbiology 11/07/23 10:44 Blood Culture - Preliminary Blood SPECIMEN COLLECTED 11/07/23 10:40 Blood Culture - Preliminary Blood SPECIMEN COLLECTED A&P Assessment and plan (1) Cellulitis: Erythema and edema of left leg with anterior and posterior ulcers, sanguineous fluid drainage and odor Wound care-Dressing changes 3x day No fluids Continue Vanc and Zosyn, per pharmacy dosing for renal function, elevated BUN/Cr Continue Tylenol 650mg PRN and hydrocodone or pain Start Lasix 40mg IVP 2q4 hrs for bilateral edema and Elevate legs Blood cultures pending MRSA swab was negative (2) Diastolic dysfunction without heart failure: Ordered EKG and Echo to obtain baseline and monitor pre-existing heart conditions. EKG showed sinus rhythm with first degree AV Block ECHO showed EF of 60% with mild LVH and grade 3/4 diastolic dysfunction with elevated peak pulmonary pressures, suggestive of diastolic dysfunction with possible pulmonary HTN BNP yesterday was 954 Monitor I&Os Start Lasix 40mg IVP q24 for leg edema (3) Afib: Continue Eliquis 5mg Give Amiodarone 200mg Continue Metoprolol 50mg (4) Neuropathy: Give Gabapentin 100mg, stop pregablin (5) Hypothyroid: Continue Levothyroxine 175 mcg (6) Hypertension: Give amlodipine 5mg PO, Stop lisinopril (7) GERD (gastroesophageal reflux disease): Continue Protonix 40mg BID PO Plan Cardiac diet due to history of Afib Continue oxybutynin 5mg BID for urinary incontinence Full code Coding Level of Care Code 14056 Diagnoses Cellulitis L03.90 Diastolic dysfunction without heart failure I51.89 Afib I48.91 Neuropathy G62.9 Hypothyroid E03.9 Hypertension I10 GERD (gastroesophageal reflux disease) K21.9 Time Spent (min) 24 Documented by User: Jameson Bowman MD 11/08/23 10:57 Subjective 2 Medications: Reviewed: Yes Physical Exam 2 Extremity: OTHER: Bilateral edema, no cyanosis, left leg wrapped with cotton sleave Wound was looked out during dressing change. Some fibrin on sore on the back. Others are debrided well. Less drainage. Less erythema and edema. Data 11/08/23 05:05 11/08/23 05:05 A&P Assessment and plan (1) Cellulitis: Erythema and edema of left leg with anterior and posterior ulcers, sanguineous fluid drainage and odor Wound care-Dressing changes 3x day No fluids Continue Vanc and Zosyn, per pharmacy dosing for renal function, elevated BUN/Cr Continue Tylenol 650mg PRN and hydrocodone or pain Start Lasix 40mg IVP 24 hrs for bilateral edema and Elevate legs Blood cultures pending MRSA swab was negative (2) Diastolic dysfunction without heart failure: Ordered EKG and Echo to obtain baseline and monitor pre-existing heart conditions. EKG showed sinus rhythm with first degree AV Block ECHO showed EF of 60% with mild LVH and grade 3/4 diastolic dysfunction with elevated peak pulmonary pressures, suggestive of diastolic dysfunction with possible pulmonary HTN BNP yesterday was 954 Monitor I&Os Start Lasix 40mg IVP q24 for leg edema BMP tomorrow (3) Afib: Continue Eliquis 5mg Give Amiodarone 200mg Continue Metoprolol, decrease dose secondary to some relative bradycardia (4) Neuropathy: (5) Hypothyroid: (6) Hypertension: Give amlodipine 5mg PO, Stop lisinopril. Home medicine list has been reconciled. She is on olmesartan. Hold this until review of renal function tomorrow. Note blood pressure is borderline at 106 systolic. Do not want to worsen renal function. (7) GERD (gastroesophageal reflux disease): Attestations 2 Medical Necessity Statement*: Needs continued hospitalization for further diuresis secondary to acute diastolic heart failure Diagnoses Cellulitis L03.90 Diastolic dysfunction without heart failure I51.89 Afib I48.91 Neuropathy G62.9 Hypothyroid E03.9 Hypertension I10 GERD (gastroesophageal reflux disease) K21.9 Time Spent (min) 24
--- NOTE | 2023-11-08 10:02 | PC.CHAP ---
Pastoral Care Encounter/Spiritual Assessment Type of Contact [] Declined oracle database manager visit [] Patient/Family/Request visit [] Outpatient visit [] Follow-up visit [] Physician referral [] Code/Alert [x] Routine visit [] Staff referral [] Actively dying [] Patient sleeping [] Family support [] [] Out of room [] Palliative care [] [] Receiving care in room [] Pre-surgical visit [] Trauma [] Long length of stay [] ICU visit [] Other: Relational/Emotional Strength [x] Patient feels connected with others/family/visitors/staff [] Distress [] Loneliness/isolation [] Abandonment Spirituality of Patient [x] Person of [place] [] Attends Amish of their [place] [x] Believes in Prayer [] Reads Bible or Yarsanism materials [] There are Spiritual issues to be addressed Development Engineer Interventions [x] Prayer [x] Active listening [x] Non-anxious presence [] Spiritual/emotional support [] Crisis/trauma care [] Spiritual counseling [] Bereavement support [] Provided bereavement packet [] Provided Bible/devotional materials [] Provided toy/stuffed animal, coloring book to patient or family member [] Provided Communion [] Anointing/[place] [] Salvation [] Completed spiritual assessment [] Other: Impact on Illness or Injury [] Angry [] Fearful [] Anxious [] Often cries [] Exhaustion [] Unable to work [] Unable to attend anglican [] Unable to walk/stand [] Unable to read [] Unable to drive [] Unable to eat/drink [] Unable to sleep [] Unable to be with family [] Patient intubated [] Other: Summary prayer Time spent with patient 10 Min
[2023-11-08] MEDS: piperacillin-tazobactam 3.375 GM in sodium chloride 0.9% (plus) 50 ML IV ×2 (10:28→22:10)
[2023-11-08] MEDS: FUROsemide 10 mg/mL SDV 4mL 40 MG IVP (10:28)
--- NOTE | 2023-11-08 11:01 | PC.NURSE ---
Dressing change completed with Dr. Bowman and Gavi, student.
--- NOTE | 2023-11-08 11:02 | PC.NURSE ---
IV medications delayed d/t no IV access. Ultrasound required.
--- NOTE | 2023-11-08 11:21 | PC.SOCIAL ---
IMM Updated Updated pt on IMM. No questions voiced. Provided pt a copy. Initialed, dated, & timed a copy & placed in chart.
[2023-11-08 12:00] VITALS: BP 120/59; PULSE 52; RESP 18; TEMP 36.7; O2SAT 96
[2023-11-08] MEDS: vancomycin 750 MG in sodium chloride 0.9% 250 ML 250 MG IV (12:37)
[2023-11-08 16:00] VITALS: BP 142/80; PULSE 69; RESP 17; TEMP 36.8; O2SAT 93
[2023-11-08] MEDS: metoprolol tartrate 25 mg Tablet 12.5 MG PO (16:45)
[2023-11-08 19:52] VITALS: BP 104/62; PULSE 47; RESP 14; TEMP 36.8; O2SAT 95
[2023-11-09] VITALS: BP 162/73; PULSE 60; RESP 15; TEMP 36.8; O2SAT 95
[2023-11-09] MEDS: piperacillin-tazobactam 3.375 GM in sodium chloride 0.9% (plus) 50 ML IV (03:16)
[2023-11-09 04:00] VITALS: BP 108/62; PULSE 50; RESP 13; TEMP 36.5; O2SAT 95
[2023-11-09 05:29] LABS: Basophils # 0.1 10^3/uL (0.0-0.1); Basophils % 1.1 %; Eosinophils # 0.2 10^3/uL (0.0-0.8); Eosinophils % 3.9 %; Hematocrit 36.2 % (36-47); Lymphocytes # 1.4 10^3/uL (0.8-4.8); Lymphocytes % 23.4 %; Mean Corpuscular HGB Conc 31.8 g/dL (30-55); Mean Corpuscular Hemoglobin 30.4 pg (27-33); Mean Corpuscular Volume 95.8 fl (85-98); Mean Platelet Volume 9.3 fL (7.4-10.4); Monocytes # 0.5 10^3/uL (0.2-0.9); Monocytes % 7.5 %; Neutrophils # 3.93 10^3/uL (1.8-7.7); Neutrophils % 63.9 %; Nucleated Red Blood Cells % 0 %; Platelet Count 320 10^3/cmm (157-399); Red Blood Count 3.78 10^6/uL (3.85-5.65); Red Cell Distribution Width 13.8 % (12.1-15.1); White Blood Count 6.15 10^3/uL (3.29-11.43)
[2023-11-09 05:45] LABS: Anion Gap 16.9 (5-19); Blood Urea Nitrogen 47 mg/dL (8-23); Calcium 8.4 mg/dL (8.5-10.5); Carbon Dioxide 22 mmol/L (22-29); Chloride 107 mmol/L (98-107); Glucose 105 mg/dL (65-115); Magnesium 2.2 mg/dL (1.7-2.3); Osmolality Calculated 305 mOsm/kg (285-295); Potassium 4.9 mmol/L (3.5-5.1); Sodium 141 mmol/L (136-145)
[2023-11-09 05:47] LABS: Creatinine Clr Calc Pharmacy 38.1158
[2023-11-09] MEDS: levothyroxine 175 mcg Tablet PO (06:10)
[2023-11-09 08:00] VITALS: BP 129/73; PULSE 82; RESP 16; TEMP 36.8; O2SAT 97
[2023-11-09] MEDS: amiodarone 200 mg Tablet PO (08:55)
[2023-11-09] MEDS: metoprolol tartrate 25 mg Tablet 12.5 MG PO (08:55)
[2023-11-09] MEDS: amlodipine 5 mg Tablet PO (08:55)
[2023-11-09] MEDS: FUROsemide 10 mg/mL SDV 4mL 40 MG IVP (08:55)
[2023-11-09] MEDS: apixaban 5 mg Tablet PO (08:56)
[2023-11-09] MEDS: gabapentin 100 mg Capsule PO (08:56)
[2023-11-09] MEDS: oxybutynin 5 mg Tablet PO (08:56)
[2023-11-09] MEDS: pantoprazole DR 40 mg Tablet PO (08:56)
[2023-11-09] MEDS: HYDROcodone-acetaminophen 5-325 mg Tablet 1 TAB PO (09:02)
[2023-11-09 11:52] VITALS: BP 119/65; PULSE 68; RESP 14; TEMP 36.6; O2SAT 95
--- NOTE | 2023-11-09 12:30 | PM.DCS ---
Discharge Providers Date of Admission: 11/07/23 09:09 Date of Discharge: November 09, 2023 Attending Provider at Admission: Jameson Bowman MD Attending Provider at Discharge: Phillip Geiger MD Primary Care Provider: Rosa Kam APN Diagnoses at Discharge Discharge Diagnosis (1) Cellulitis: Status: Acute (2) Diastolic dysfunction without heart failure: Status: Inactive (3) Afib: Status: Acute (4) Neuropathy: Status: Acute (5) Hypothyroid: Status: Acute (6) Hypertension: Status: Acute (7) GERD (gastroesophageal reflux disease): Status: Acute Reason for Visit Reason for Visit: Cellulitis Hospital Course Hospital Course Vidhya Malik is a 72 year old female with PMH of hypothyroidism, venous insufficiency, HTN, Afib, GERD, OA, and history of gout who presented from wound care clinic with worsening edema, erythema, and drainage of left lower leg wound. She was found to have cellulitis of left lower leg complicated by open wounds. Patient has been following with wound care clinic for wound management. She had previously been on the linezolid and doxycycline. She was treated with aggressive wound care. She received vancomycin and Zosyn. Blood cultures obtained and negative at time of discharge. Further workup revealed acute on chronic heart failure with preserved ejection fraction exacerbation. Echocardiogram revealed left ventricular ejection fraction of 60% with mild left ventricular hypertrophy and grade 3-4 diastolic dysfunction with severely elevated filling pressures. She was treated with IV Lasix with improvement in volume status. Her home diuretic regiment was changed from Lasix 40 mg daily to Bumex 1 mg twice daily. She is to follow-up with her primary provider within the next 1 to 2 weeks for further assessment as well as lab check to monitor renal function as well as potassium levels (lab for renal panel requested). Overall, her symptoms improved and patient requested to be discharged by day of discharge. She will follow-up with wound care clinic for ongoing wound care. She was rotated to oral antibiotics with cefdinir for continued cellulitis coverage. Patient discharged home in stable condition. Physical Exam Narrative: General: Patient is awake and alert. Head: Normocephalic. Atraumatic. EOM intact. Neck: No JVD. Cardiovascular: RRR. No gallops. No murmurs. Bilateral lower extremity edema, pitting. Lungs: Clear to auscultation, no use of accessory muscles, no crackles or wheezes. Skin: Edema, erythema, and overlying warmth the left lower extremities. There is multiple small areas of ulceration present. Abdomen: Normal bowel sounds, abdomen soft and nontender. Genito Urinary: Genital exam not performed since complaints not related. Rectal: Rectal exam not performed since no symptoms indicated blood loss. Extremities: No cyanosis or clubbing. Musculoskeletal: No swollen or erythematous joints. Neurological: Moves all 4 extremities. No myoclonus. Discharge Data Studies Completed and Pending Completed Studies During Hospitalization Category Date Time Status CV. echo complete* [id number] Routine Ultrasound 11/07/23 14:14 Completed Pending at discharge Category Date Time Status Blood Culture Routine Lab 11/07/23 10:44 Results Vancomycin Trough Timed Lab 11/10/23 12:00 Ordered Laboratory Results WBC 6.15 10^3/uL (3.29-11.43) 11/09/23 05:23 RBC 3.78 10^6/uL (3.85-5.65) L 11/09/23 05:23 Hgb 11.50 g/dL (11.27-16.99) 11/09/23 05:23 Hct 36.2 % (36-47) 11/09/23 05:23 MCV 95.8 fl (85-98) 11/09/23 05:23 MCH 30.4 pg (27-33) 11/09/23 05:23 MCHC 31.8 g/dL (30-55) 11/09/23 05:23 RDW 13.8 % (12.1-15.1) 11/09/23 05:23 Plt Count 320 10^3/cmm (157-399) 11/09/23 05:23 MPV 9.3 fL (7.4-10.4) 11/09/23 05:23 Neut % (Auto) 63.9 % 11/09/23 05:23 Lymph % (Auto) 23.4 % 11/09/23 05:23 [place] % (Auto) 7.5 % 11/09/23 05:23 Eos % (Auto) 3.9 % 11/09/23 05:23 Baso % (Auto) 1.1 % 11/09/23 05:23 Neut # (Auto) 3.93 10^3/uL (1.8-7.7) 11/09/23 05:23 Lymph # (Auto) 1.4 10^3/uL (0.8-4.8) 11/09/23 05:23 [place] # (Auto) 0.5 10^3/uL (0.2-0.9) 11/09/23 05:23 Eos # (Auto) 0.2 10^3/uL (0.0-0.8) 11/09/23 05:23 Baso # (Auto) 0.1 10^3/uL (0.0-0.1) 11/09/23 05:23 Nucleated RBC % (auto) 0 % 11/09/23 05:23 Nucleated RBCs # 0.0 /100WBC 11/09/23 05:23 Sodium 141 mmol/L (136-145) 11/09/23 05:23 Potassium 4.9 mmol/L (3.5-5.1) 11/09/23 05:23 Chloride 107 mmol/L (98-107) 11/09/23 05:23 Carbon Dioxide 22 mmol/L (22-29) 11/09/23 05:23 Anion Gap 16.9 (5-19) 11/09/23 05:23 BUN 47 mg/dL (8-23) H 11/09/23 05:23 Creatinine 1.4 mg/dL (0.5-0.9) H 11/09/23 05:23 GFR Calculation Not Reportable 11/09/23 05:23 Glucose 105 mg/dL (65-115) 11/09/23 05:23 Calculated Osmolality 305 mOsm/kg (285-295) H 11/09/23 05:23 Calcium 8.4 mg/dL (8.5-10.5) L 11/09/23 05:23 Magnesium 2.2 mg/dL (1.7-2.3) 11/09/23 05:23 Total Bilirubin 0.3 mg/dL (0.15-1.2) 11/07/23 10:40 AST 27 U/L (0-32) 11/07/23 10:40 ALT 23 U/L (0-33) 11/07/23 10:40 Alkaline Phosphatase 110 U/L (35-105) H 11/07/23 10:40 NT-Pro-B Natriuret Pep 954 pg/mL (0-125) H 11/07/23 11:22 Total Protein 7.5 g/dL (6.6-8.7) 11/07/23 10:40 Albumin 3.9 g/dL (3.5-5.2) 11/07/23 10:40 Globulin 3.6 g/dL (1.3-4.6) 11/07/23 10:40 TSH 2.81 uIU/mL (0.27-4.20) 11/07/23 10:40 Urine Color Yellow (Yellow) 11/07/23 15:10 Urine Appearance Clear (CLEAR) 11/07/23 15:10 Urine pH 5.5 (5-7) 11/07/23 15:10 Ur Specific [place] 1.016 (1.005-1.030) 11/07/23 15:10 Urine Protein Negative (Negative) 11/07/23 15:10 Urine Glucose (UA) Negative (Normal) 11/07/23 15:10 Urine Ketones Negative (Negative) 11/07/23 15:10 Urine Blood Negative (Negative) 11/07/23 15:10 Urine Nitrate Negative (Negative) 11/07/23 15:10 Urine Bilirubin Negative (Negative) 11/07/23 15:10 Urine Urobilinogen 0.2 mg/dL (Negative) 11/07/23 15:10 Ur Leukocyte Esterase 2+ (Negative) A 11/07/23 15:10 Urine RBC 0-2 /hpf (0-2) 11/07/23 15:10 Urine WBC 6-10 /hpf (0-5) 11/07/23 15:10 Ur Squamous Epith Cells 0-5 /hpf (0-5) 11/07/23 15:10 Amorphous Sediment Not Reportable 11/07/23 15:10 Urine Bacteria None seen /hpf (NONE) 11/07/23 15:10 Hyaline Casts 6.61 /lpf 11/07/23 15:10 Nasal MRSA (PCR) Not detected (Not Detecte) 11/07/23 13:10 Vitals Last Vital Signs Temp 97.8 F 11/09/23 11:52 Pulse 68 11/09/23 11:52 Resp 14 11/09/23 11:52 BP 119/65 11/09/23 11:52 Pulse Ox 95 11/09/23 11:52 O2 Del Method Room Air 11/09/23 11:52 Discharge Plan Discharge Patient Disposition: Home Condition: Stable Prescriptions: New metoprolol tartrate 25 mg Tablet 25 mg PO BID 30 Days Qty: 60 0RF bumetanide 1 mg tablet 0.5 mg PO BID Qty: 60 0RF cefdinir 300 mg capsule 300 mg PO BID 14 Days Qty: 28 0RF Continued levothyroxine 175 mcg capsule 175 mcg PO DAILY omeprazole 20 mg capsule,delayed release(DR/EC) 20 mg PO BID linezolid 600 mg tablet 600 mg PO BID Qty: 20 0RF amiodarone 200 mg tablet 200 mg PO DAILY tramadol 50 mg tablet 50 mg PO Q4H PRN (Reason: Pain) spironolactone 25 mg tablet 25 mg PO DAILY gabapentin 100 mg capsule 100 mg PO DAILY Eliquis 5 mg tablet 5 mg PO DAILY Discontinued furosemide 40 mg tablet 40 mg PO .COMPLEX Rx Instructions: TAKE ONE TABLET BY MOUTH DAILY FOR FIVE DAYS, THEN NEEDED FOR 2-3 POUNDS WEIGHT GAIN IN 24 HOURS FOR 30 DAYS. ibuprofen 800 mg tablet 800 mg PO TID PRN (Reason: inflamation) metoprolol succinate 50 mg tablet extended release 24 hr 50 mg PO QAM amlodipine 5 mg tablet 5 mg PO DAILY olmesartan 40 mg tablet 20 mg PO BID Discharge Orders: Discharge Order (Routine); Ordered 11/09/23 Ordered By: Phillip Geiger Other Ambulatory Orders: Renal Function Panel (Routine) Timeframe: 1 Week Facility: [facility] - Location: Lab - Main Lab Ordered By: Phillip Geiger Referrals: Wound Care [Provider Group] - 4-7 days ([phone] We have notified your physician's clinic of the need for a follow-up appointment to be scheduled. If you have not heard from them within the next 2 business days, please call them directly. ) Rosa Kam APN [Primary Care Provider] - 4-7 days (Follow up with PCP with labs.) Discharge Diet: Advance as tolerated, Usual diet and Low Salt Discharge Activity: Resume usual activity and Increase activity as tolerated Patient Instructions: Opioid Safety Activity Restrictions/Additional Instructions: 1. Take medications as prescribed. 2. Wound care as directed by wound care teaching by RN prior to discharge. 3. Recommend follow-up with primary care provider within 1 week. Recommend labs at that time. Outpatient lab order for renal panel has been entered. 4. Increase activity as tolerated. Discharge Attestations Time Spent in Discharge Care*: greater than 30 min Quality Metrics Clinical Quality Measures [ No reported AMI, CVA or VTE this stay] Coding Level of Care Code Acute Code for Chg Fwd Diagnoses Cellulitis L03.90 Diastolic dysfunction without heart failure I51.89 Afib I48.91 Neuropathy G62.9 Hypothyroid E03.9 Hypertension I10 GERD (gastroesophageal reflux disease) K21.9
--- NOTE | 2023-11-09 12:31 | PC.NURSE ---
Dressing changed per updated orders. Sending pt with supplies to change at home. Pt states that she has a cousin who is able to help her with dressing changes at home. Educates pt on dressing change.
[2023-11-09 13:40] VITALS: BP 119/65; PULSE 68; RESP 14; TEMP 36.6; O2SAT 95
== END 2023-11-09 13:00 | disposition home or self-care (01) | DRG 603 ==
PROVIDERS: Admitting Provider Internal Medicine; PCP Nurse Practitioner Family; Visit Provider Internal Medicine
DX: L03.116 Cellulitis of left lower limb (principal); I48.91 Unspecified atrial fibrillation; G62.9 Polyneuropathy, unspecified; E03.9 Hypothyroidism, unspecified; I10 Essential (primary) hypertension; K21.9 Gastro-esophageal reflux disease without esophagitis; Z96.649 Presence of unspecified artificial hip joint; Z96.659 Presence of unspecified artificial knee joint; H54.7 Unspecified visual loss; M19.90 Unspecified osteoarthritis, unspecified site; L98.499 Non-pressure chronic ulcer of skin of other sites with unspecified severity; R32 Unspecified urinary incontinence; I51.89 Other ill-defined heart diseases; I87.2 Venous insufficiency (chronic) (peripheral); Z79.899 Other long term (current) drug therapy; Z79.890 Hormone replacement therapy; Z88.8 Allergy status to other drugs, medicaments and biological substances
CPT/HCPCS: 36415; 80048; 80053; 81001; 83735; 83880; 84443; 85025; 87040; 93005; 93306; J1940; J2543; J3370; J7050

== ENCOUNTER → 2023-11-13 10:39 | Outpatient (BNVA) | payer MEDICARE, SELFPAY | PROVIDERS: PCP Nurse Practitioner Family; Visit Provider Thoracic Surgery (Cardiothoracic Vascular Surgery) | DX: I96 Gangrene, not elsewhere classified (principal); I87.2 Venous insufficiency (chronic) (peripheral); L97.821 Non-pressure chronic ulcer of other part of left lower leg limited to breakdown of skin | CPT/HCPCS: 97597; 97598; A6197; A6252 ==

== ENCOUNTER → 2023-11-20 09:53 | Outpatient (BNVA) | payer MEDICARE, SELFPAY | PROVIDERS: PCP Nurse Practitioner Family; Visit Provider Thoracic Surgery (Cardiothoracic Vascular Surgery) | DX: I96 Gangrene, not elsewhere classified (principal); I87.2 Venous insufficiency (chronic) (peripheral); L97.821 Non-pressure chronic ulcer of other part of left lower leg limited to breakdown of skin | CPT/HCPCS: 97597; 97598; A6197 ==

== ENCOUNTER → 2023-11-27 10:30 | Outpatient (BNVA) | payer MEDICARE, SELFPAY | PROVIDERS: PCP Nurse Practitioner Family; Visit Provider Thoracic Surgery (Cardiothoracic Vascular Surgery) | DX: I96 Gangrene, not elsewhere classified (principal); I87.2 Venous insufficiency (chronic) (peripheral); L97.821 Non-pressure chronic ulcer of other part of left lower leg limited to breakdown of skin | CPT/HCPCS: 97597; 97598; A6197; A6253 ==

== ENCOUNTER → 2023-12-04 13:31 | Outpatient (BNVA) | payer MEDICARE, SELFPAY | PROVIDERS: PCP Nurse Practitioner Family; Visit Provider Thoracic Surgery (Cardiothoracic Vascular Surgery) | DX: I96 Gangrene, not elsewhere classified (principal); I87.2 Venous insufficiency (chronic) (peripheral); L97.821 Non-pressure chronic ulcer of other part of left lower leg limited to breakdown of skin | CPT/HCPCS: 97597; 97598; A6248; A6253 ==

== ENCOUNTER → 2023-12-11 13:52 | Outpatient (BNVA) | payer MEDICARE, SELFPAY | PROVIDERS: PCP Nurse Practitioner Family; Visit Provider Thoracic Surgery (Cardiothoracic Vascular Surgery) | DX: I96 Gangrene, not elsewhere classified (principal); I87.2 Venous insufficiency (chronic) (peripheral); L97.821 Non-pressure chronic ulcer of other part of left lower leg limited to breakdown of skin | CPT/HCPCS: 97597; 97598; A6210 ==

== ENCOUNTER → 2023-12-18 14:11 | Outpatient (BNVA) | payer MEDICARE, SELFPAY | PROVIDERS: PCP Nurse Practitioner Family; Visit Provider Thoracic Surgery (Cardiothoracic Vascular Surgery) | DX: I96 Gangrene, not elsewhere classified (principal); I87.2 Venous insufficiency (chronic) (peripheral); L97.822 Non-pressure chronic ulcer of other part of left lower leg with fat layer exposed | CPT/HCPCS: 97597; 97598 ==

== ENCOUNTER → 2023-12-25 14:01 | Outpatient (BNVA) | payer MEDICARE, SELFPAY | PROVIDERS: PCP Nurse Practitioner Family; Visit Provider Thoracic Surgery (Cardiothoracic Vascular Surgery) | DX: I96 Gangrene, not elsewhere classified (principal); I87.2 Venous insufficiency (chronic) (peripheral); L97.822 Non-pressure chronic ulcer of other part of left lower leg with fat layer exposed | CPT/HCPCS: 97597; 97598 ==

== ENCOUNTER → 2024-01-01 13:49 | Outpatient (BNVA) | payer MEDICARE, SELFPAY | PROVIDERS: PCP Nurse Practitioner Family; Visit Provider Thoracic Surgery (Cardiothoracic Vascular Surgery) | DX: I96 Gangrene, not elsewhere classified (principal); I87.2 Venous insufficiency (chronic) (peripheral); L97.821 Non-pressure chronic ulcer of other part of left lower leg limited to breakdown of skin; L89.892 Pressure ulcer of other site, stage 2; S80.811A Abrasion, right lower leg, initial encounter; W22.8XXA Striking against or struck by other objects, initial encounter | CPT/HCPCS: 11042; 11045; 97597; A6253 ==

== ENCOUNTER → 2024-01-08 13:07 | Outpatient (BNVA) | payer MEDICARE, SELFPAY | PROVIDERS: PCP Nurse Practitioner Family; Visit Provider Thoracic Surgery (Cardiothoracic Vascular Surgery) | DX: I96 Gangrene, not elsewhere classified (principal); I87.2 Venous insufficiency (chronic) (peripheral); L97.822 Non-pressure chronic ulcer of other part of left lower leg with fat layer exposed; S80.811D Abrasion, right lower leg, subsequent encounter; W22.8XXD Striking against or struck by other objects, subsequent encounter; L89.892 Pressure ulcer of other site, stage 2 | CPT/HCPCS: 11042; 11045; 97597 ==